=== PATIENT | female | born 1965 | race Caucasian/White ===

== ENCOUNTER 2019-06-12 11:44 | Emergency (ER) | payer BC, SELFPAY ==
[2019-06-12 11:56] VITALS: BP 174/107; PULSE 97; RESP 18; TEMP 36.7; O2SAT 98; BMI 25.7
--- NOTE | 2019-06-12 12:02 | XR_ITS ---
PROCEDURE: XR TIBIA FIBULA LT 2V CLINICAL INDICATION: FELL OUT OF CHAIR Posttraumatic pain COMPARISON: No exams were available for comparison FINDINGS: There is a nondisplaced fracture involving the proximal aspect of the fibula near the neck of the fibula medially. No other significant anomalies are evident. IMPRESSION: Nondisplaced fracture neck of fibula Dictated by: Adolfo Arredondo MD 06/12/2019 13:45 Electronically signed by Adolfo Arredondo MD in [place] 06/12/2019 13:45
--- NOTE | 2019-06-12 12:02 | XR_ITS ---
PROCEDURE: XR KNEE LT 3V CLINICAL INDICATION: FELL OUT OF CHAIR Posttraumatic pain COMPARISON: No exams were available for comparison FINDINGS: There is a nondisplaced fracture involving the neck of the fibula medially. Otherwise negative IMPRESSION: Nondisplaced fracture involves the neck of the fibula medially Dictated by: Adolfo Arerdondo MD 06/12/2019 13:46 Electronically signed by Adolfo Arredondo MD in [place] 06/12/2019 13:46
--- NOTE | 2019-06-12 12:11 | PC.NURSE ---
PT TO RAD
--- NOTE | 2019-06-12 13:11 | HMH.EDGENADL ---
ED Disposition Clinical Impression: Fracture, fibula, proximal Qualifiers: Encounter type: initial encounter Fracture type: closed Fracture morphology: unspecified fracture morphology Laterality: left Qualified Code(s): S82.832A - Other fracture of upper and lower end of left fibula, initial encounter for closed fracture Disposition: Home, Self-Care Condition on Discharge: Good Instructions: Fibula Shaft Fracture, How to Apply an Elastic Wrap on Knee, How to Use Crutches Additional Instructions: Web roll and Thomas wrap and crutches as needed for pain and swelling. Ice and elevation as needed for swelling and pain. Tylenol or ibuprofen for pain. Follow-up with orthopedics, call for appointment. Referrals: Chi Cervantes MD [Staff Physician] - - Critical Care Critical Care Time: No Attestation: On 06/12/19, the high probability of a clinically significant, sudden or life threatening deterioration of the following system(s) required my full and direct attention, intervention and personal management. The time I documented below is in addition to time spent performing reported procedures but includes the following listed in this critical care notation. Medical Decision Making - Petros Inquiry Pt receiving controlled substance: No Vital Signs: 06/12/19 11:56 Temperature 98.1 F Temperature Source Oral Pulse Rate [Left Radial] 97 H Respiratory Rate 18 Blood Pressure [Left Arm] 174/107 H Blood Pressure Mean [Left Arm] 129 Blood Pressure Source [Left Arm] Automatic Cuff Blood Pressure Position [Left Arm] Sitting 02 Sat by Pulse Oximetry 98 Oxygen Delivery Method Room Air Orders (Tests/Meds): ORDERS Category Date Time Status XR knee LT 3V Stat Exams 06/12/19 12:02 Taken XR tibia fibula LT 2V Stat Exams 06/12/19 12:02 Taken General Adult HPI - General Chief complaint: Extremity Injury, Lower Stated complaint: AO [id number] left leg swollen,home ao Time Seen by Provider: 06/12/19 13:11 Mode of Arrival: Ambulatory Limitations: No Limitations Description of Symptoms (Recalled from ER Triage Doc. by RN): PT C/O LT KNEE AND LLE PAIN. PT ADVISES THAT SHE WAS STANDING IN HER KITCHEN CHAIR, HANGING KENDAL LIGHTS ABOVE HER KITCHEN CABINETS, AND FELL OUT OF THE CHAIR. PT STATES THAT SHE FELL, THE CHAIR COME BACK AND HIT HER IN HER LT LEG BY HER OUTTER KNEE. PT NOW PRESENTS WITH SWELLING TO THE KNEE AND LLE. - History of Present Illness HPI narrative: Patient says that on Tuesday, 2 days ago she was standing on a kitchen chair and fell. She says that they chair fell over and hit her in the lateral aspect of her proximal lower leg and she now has pain and swelling in that area. She is able to bear weight. Denies numbness or weakness. - Related Data Previous Rx's Medication Instructions Recorded Ibuprofen [Ibuprofen 600mg Tab] 600 mg PO Q6HP PRN #30 tab 10/03/18 Amoxicillin/Potassium Clav 1 tab PO Q12H 10 Days #20 tab 05/02/19 [Augmentin 875-125 Tablet] lisinopriL [Lisinopril 10mg Tab] 10 mg PO DAILY 30 Days #30 tab 05/02/19 predniSONE [Deltasone 10mg tablet] 10 mg PO BID 4 Days #8 tab 05/02/19 Allergies Allergy/AdvReac Type Severity Reaction Status Date / Time gabapentin [GABAPENTIN] Allergy Unknown NA-NAUSEA/V Verified 10/03/18 10:05 OMITING naproxen [NAPROXEN] Allergy Unknown NA-NAUSEA/V Verified 10/03/18 10:05 OMITING [facility] History - Hepatitis A Screen Drug use history?: No High risk sexual behaviors?: No History of sexually transmitted infection?: No Currently employed?: No Childcare worker?: No Do you have indoor plumbing?: Yes Do you have electricity?: Yes Attestation statement:: This patient has been screened for Hepatitis A risk factors. I have reviewed the patient's past medical history: Yes Medical History: Denies:: Cancer, Diabetes Mellitus Type 1, Diabetes Mellitus Type 2, Internal Pacemaker, MRSA Laterality Cases: Left: Arthroscopy Shoulder Other S
--- NOTE | 2019-06-12 13:28 | PC.NURSE ---
web and meghana wrap applied to rlt leg. crutches and instructions given,.
[2019-06-12 13:30] VITALS: BP 112/74; PULSE 68; RESP 16; TEMP 36.6; O2SAT 98
== END 2019-06-12 13:31 | disposition home or self-care (01) ==
PROVIDERS: Emergency Provider Emergency Medicine; PCP Family Medicine
DX: S82.832A Other fracture of upper and lower end of left fibula, initial encounter for closed fracture (principal); W07.XXXA Fall from chair, initial encounter; Y92.010 Kitchen of single-family (private) house as the place of occurrence of the external cause; I10 Essential (primary) hypertension; F17.210 Nicotine dependence, cigarettes, uncomplicated; Z88.8 Allergy status to other drugs, medicaments and biological substances
CPT/HCPCS: 73562; 73590; 99283

== ENCOUNTER → 2019-10-16 09:32 | Outpatient (CLI) | payer BC, SELFPAY ==
--- NOTE | 2019-10-16 | XR_ITS ---
PROCEDURE: XR FOOT LT MIN 3V CLINICAL INDICATION: METATARSALGIA COMPARISON: CR XR FOOT RT MIN 3V from 10/16/2019 FINDINGS: No fracture or dislocation. No lytic or blastic change. There is normal mineralization. There is moderate hallux valgus. There is slight soft tissue prominence over the 1st metatarsal head. The plantar arch is normal. There is a small spur of the calcaneus at the insertion of the plantar tendon. IMPRESSION: Mild to moderate hallux valgus with small calcaneal spur Dictated by: Dr. Nick Lara MD 10/16/2019 10:08 Dr. Nick Lara MD in [place] 10/16/2019 10:08
--- NOTE | 2019-10-16 | XR_ITS ---
PROCEDURE: XR FOOT RT MIN 3V CLINICAL INDICATION: METATARSALGIA COMPARISON: No exams were available for comparison FINDINGS: No fracture or dislocation. No lytic or blastic change. There is normal mineralization. There is moderate hallux valgus somewhat more prominent than on the left foot. Mild soft tissue prominence over the 1st metatarsal head is again noted. The remaining metatarsals and phalanges all appear intact. Plantar arch is normal. There is a small tiny spur of the calcaneus at the insertion of the plantar tendon. IMPRESSION: Moderate hallux valgus with probable small bunion Dictated by: Dr. Nick Lara MD 10/16/2019 10:10 Dr. Nick Lara MD in [place] 10/16/2019 10:10
--- NOTE | 2019-10-16 09:43 | XR_ITS ---
PROCEDURE: XR CHEST 2V CLINICAL HISTORY: DYSPENA ON EXERTION COMPARISON: CR CXR CHEST(2 VIEWS-NOT PORTABLE) from 08/04/[address] CHEST W/O CONTRAST from 08/04/2013 FINDINGS: The cardiomediastinal silhouette and pulmonary vascularity are within normal limits. There is mild pectus excavatum. The lungs are clear without infiltrates, suspicious nodules, or pleural effusions. There are bilateral nipple rings noted. No acute bony abnormalities. IMPRESSION: No acute findings. Dictated by: Dr. Nick Lara MD 10/16/2019 10:07 Dr. Nick Lara MD in [place] 10/16/2019 10:07
--- NOTE | 2019-10-16 10:09 | ECG_ITS ---
APPROVED REPORT Exam: Resting ECG HR:63 bpm ECG Measurements Heart Rate 63 AXES NM 188 P 57 QRSd 88 QRS -5 QT 440 T 63 QTc 450 <Conclusion> Normal sinus rhythm Possible Left atrial enlargement Borderline ECG Electronically signed by : Tanner Sutherland, 10/16/2019 10:26:12
== END ==
LOC: RAD 09:35
PROVIDERS: PCP Internal Medicine; Visit Provider Internal Medicine
DX: R06.09 Other forms of dyspnea (principal); I10 Essential (primary) hypertension; F17.210 Nicotine dependence, cigarettes, uncomplicated; M79.671 Pain in right foot; M79.672 Pain in left foot
CPT/HCPCS: 71046; 73630; 93005

== ENCOUNTER → 2020-01-28 17:40 | Outpatient (CLI) | payer BC, SELFPAY ==
[2020-01-30 13:18] LABS: Covid-19 Nasal PCR Sendout Lex Not Detected
== END ==
PROVIDERS: PCP Internal Medicine; Visit Provider Internal Medicine
DX: Z03.818 Encounter for observation for suspected exposure to other biological agents ruled out (principal)
CPT/HCPCS: U0004

== ENCOUNTER → 2020-02-06 08:06 | Outpatient (CLI) | payer BC, SELFPAY ==
--- NOTE | 2020-02-06 08:09 | MR_ITS ---
PROCEDURE: MR CERVICAL SPINE WO CON CLINICAL INDICATION: CERVICAL SPINAL STENOSIS episodes of bilateral arm numbness and pain from elbows to hands and unable to move arms. symptoms x3-4wks. no injury. headache. COMPARISON: CT [facility]WO CT CERVICAL SPINE W/O CONT from 08/04/2013 TECHNIQUE: Standard multiplanar multiecho sequences are performed without contrast. 3-D MIP and myelographic images are also rendered and reviewed FINDINGS: There is normal alignment. Motion artifact obscures fine detail. The craniocervical junction has an unremarkable appearance. C2-C3: Unremarkable. C3-C4: Unremarkable. C4-C5: Minimal bulging disc. C5-C6: Minimal bulging disc C6-C7: Degenerative disc disease with minimal bulging disc. C7-T1: Minimal bulging disc IMPRESSION: Motion artifact which obscures fine detail. There is mild degenerative change with mild bulging disc and mild degenerative disc disease at C6-C7. No extruded herniated disc or canal stenosis. Dictated by: Adolfo Arredondo MD 02/07/2020 14:46 Adolfo Arredondo MD in [place] 02/07/2020 14:46
== END ==
PROVIDERS: PCP Internal Medicine; Visit Provider Internal Medicine
DX: M48.02 Spinal stenosis, cervical region (principal); R53.1 Weakness; M79.605 Pain in left leg; M79.604 Pain in right leg
CPT/HCPCS: 72141; 76376

== ENCOUNTER → 2020-03-03 09:30 | Outpatient (CLI) | payer BC, SELFPAY ==
[2020-03-03 10:44] LABS: Alanine Aminotransferase 16 U/L (12-78); Albumin Level 4.8 g/dl (3.5-5.0); Albumin/Globulin Ratio 1.5 (1.1-1.8); Alkaline Phosphatase 70 U/L (38-126); Anion Gap 13.5 mEq/L (5-15); Aspartate Amino Transferase 38 U/L (14-36); Bilirubin,Total 0.4 mg/dl (0.2-1.3); Blood Urea Nitrogen 25 mg/dl (7-17); Carbon Dioxide 32 mmol/L (22.0-30.0); Chloride 99 mmol/L (98-107); Estimated Glomerular Filt Rate 52 ml/min (>60); GFR (African American) 63 ML/MIN (>60); Globulin 3.3 g/dL (1.3-3.2); Glucose 102 mg/dl (74-100); Potassium 3.5 mmoL/L (3.5-5.1); Sodium 141 mmol/L (136-145); Total Protein,Serum 8.1 g/dl (6.3-8.2)
[2020-03-03 11:51] LABS: Vitamin B12 380 pg/mL (239-931)
[2020-03-03 11:55] LABS: Folate 3.36 ng/mL
[2020-03-07 12:45] LABS: Vitamin B1 119.3 nmol/L (66.5-200.0)
== END ==
PROVIDERS: Visit Provider Specialist
DX: R20.0 Anesthesia of skin (principal); R20.2 Paresthesia of skin
CPT/HCPCS: 36415; 80053; 82607; 82746; 84425

== ENCOUNTER 2020-06-29 16:01 | Emergency (ER) | payer BC, SELFPAY ==
[2020-06-29 16:02] VITALS: BP 206/107; PULSE 83; RESP 16; TEMP 37; O2SAT 98; BMI 24.0
--- NOTE | 2020-06-29 16:39 | HMH.EDGENADL ---
ED Disposition Clinical Impression: Peripheral edema, Essential hypertension Disposition: Home, Self-Care Condition on Discharge: Good Instructions: DI for High Blood Pressure, DI for Peripheral Edema -- Bilateral Additional Instructions: For follow-up of blood pressure and swelling. Rest and elevate your legs tonight. Restart your blood pressure medication as soon as possible. Prescriptions: Lisinopril/Hydrochlorothiazide [Lisinopril-Hctz 20-25 mg Tab] 1 tab PO DAILY #30 tab Transmission Status: Pending to [facility] #[id number] Referrals: Tanner Sutherland [Primary Care Provider] - Forms: Work/School Release - Critical Care Critical Care Time: No Attestation: On 06/29/20, the high probability of a clinically significant, sudden or life threatening deterioration of the following system(s) required my full and direct attention, intervention and personal management. The time I documented below is in addition to time spent performing reported procedures but includes the following listed in this critical care notation. Medical Decision Making - Petros Inquiry Pt receiving controlled substance: No Vital Signs: 06/29/20 16:02 Temperature 98.6 F Temperature Source Oral Pulse Rate [Right Brachial] 83 Respiratory Rate 16 Blood Pressure [Right Arm] 206/107 H Blood Pressure Mean [Right Arm] 140 Blood Pressure Source [Right Arm] Automatic Cuff Blood Pressure Position [Right Arm] Sitting 02 Sat by Pulse Oximetry 98 Oxygen Delivery Method Room Air - Lab Data Lab Results 06/29/20 16:52: WBC 8.8, RBC 4.05 L, Hgb 12.4, Hct 37.4, MCV 92.4, MCH 30.6, MCHC 33.1, RDW 13.4, Plt Count 319, MPV 7.7, Neut % (Auto) 53.1, Lymph % (Auto) 38.8, [place] % (Auto) 4.5, Eos % (Auto) 3.0, Baso % (Auto) 0.6, Neut # (Auto) 4.7, Lymph # (Auto) 3.4, [place] # (Auto) 0.4, Eos # (Auto) 0.3, Baso # (Auto) 0.1 06/29/20 16:52: Sodium 140, Potassium 3.3 L, Chloride 107, Carbon Dioxide 25, Anion Gap 11.3, BUN 23 H, Creatinine 0.90, Estimated Creat Clear 71, Estimated GFR 65, Est GFR ( Amer) 79, Glucose 118 H, Calcium 9.1, Total Bilirubin 0.2, AST 31, ALT 17, Alkaline Phosphatase 66, Total Protein 6.9, Albumin 3.9, Globulin 3.0, Albumin/Globulin Ratio 1.3 Result diagrams: 06/29/20 16:52 06/29/20 16:52 Orders (Tests/Meds): ED MEDICATIONS Discontinued Medications Generic Name Dose Route Start Last Admin Trade Name Brenda PRN Reason Stop Dose Admin Furosemide 20 mg 06/29/20 17:24 Furosemide 20 Mg/2 Ml Vial IV 06/29/20 17:25 ONCE ONE ORDERS Category Date Time Status CMP [Comprehensive Metabolic Panel] Stat Lab 06/29/20 16:52 Results TSH [Thyroid Stimulating Hormone] Stat Lab 06/29/20 16:52 Results General Adult HPI - General Chief complaint: Skin/Abscess/Foreign Body Stated complaint: feet and legs swollen Time Seen by Provider: 06/29/20 16:39 Mode of Arrival: Ambulatory Limitations: No Limitations Description of Symptoms (Recalled from ER Triage Doc. by RN): pt reports swelling to stephenie lower legs and feet that she hasn't been able to get improved x4-5 days. Pt reports - History of Present Illness HPI narrative: Complains of bilateral foot swelling for about 4 to 5 days, the swelling is caused her feet to hurt. Also out of her blood pressure medication, lisinopril/hydrochlorothiazide. There has been some problem with her physician calling it in to her pharmacy. Denies chest pain, shortness of breath. Review of her medication record also indicates that she had been on clonidine, but she says she was not on that for her blood pressure. Her Suboxone physician had her on it and has since stopped it sometime ago. She also has been prescribed spironolactone, but says she has never been able to get it filled at her pharmacy. - Related Data Home Medications Medication Instructions Recorded Confirmed aspirin 81 mg tablet,delayed 81 mg PO DAILY 03/03/20 03/03/20 release atorvastatin 20 mg tablet
[2020-06-29 17:05] LABS: Basophils # 0.1 K/mm3 (0-0.2); Basophils % 0.6 % (0.1-2.0); Eosinophils # 0.3 K/mm3 (0.0-0.4); Hematocrit 37.4 % (37.0-47.0); Hemoglobin 12.4 g/dL (12.2-16.2); Lymphocytes # 3.4 K/mm3 (0.7-4.5); Lymphocytes % 38.8 % (10-50); Mean Corpuscular HGB Conc 33.1 g/dL (31.8-35.4); Mean Corpuscular Hemoglobin 30.6 pg (27.0-31.2); Mean Corpuscular Volume 92.4 fl (81-99); Mean Platelet Volume 7.7 fl (7.4-10.4); Monocytes # 0.4 K/mm3 (0.1-1.0); Monocytes % 4.5 % (1.7-9.3); Neutrophils # 4.7 K/mm3 (1.8-7.8); Neutrophils % 53.1 % (37.0-80.0); Platelet Count 319 K/mm3 (142-424); Red Blood Count 4.05 M/mm3 (4.20-5.40); Red Cell Distribution Width 13.4 % (11.5-17.5); White Blood Count 8.8 K/mm3 (4.8-10.8)
[2020-06-29 17:10] LABS: Chloride 107 mmol/L (98-107); Potassium 3.3 mmoL/L (3.5-5.1); Sodium 140 mmol/L (136-145)
[2020-06-29 17:13] LABS: Alanine Aminotransferase 17 U/L (12-78); Albumin Level 3.9 g/dl (3.5-5.0); Albumin/Globulin Ratio 1.3 (1.1-1.8); Alkaline Phosphatase 66 U/L (38-126); Anion Gap 11.3 mEq/L (5-15); Aspartate Amino Transferase 31 U/L (14-36); Bilirubin,Total 0.2 mg/dl (0.2-1.3); Blood Urea Nitrogen 23 mg/dl (7-17); Carbon Dioxide 25 mmol/L (22.0-30.0); Creatinine Clearance Estimated 71 mL/min (50-200); Estimated Glomerular Filt Rate 65 ml/min (>60); GFR (African American) 79 ML/MIN (>60); Total Protein,Serum 6.9 g/dl (6.3-8.2)
[2020-06-29 17:14] LABS: Calcium 9.1 mg/dl (8.4-10.2); Glucose 118 mg/dl (74-100)
[2020-06-29 17:36] VITALS: BP 156/107; PULSE 70; RESP 18; TEMP 37; O2SAT 98
== END 2020-06-29 17:36 | disposition home or self-care (01) ==
PROVIDERS: Emergency Provider Emergency Medicine; PCP Internal Medicine
DX: R60.9 Edema, unspecified (principal); I10 Essential (primary) hypertension; E78.5 Hyperlipidemia, unspecified; G43.709 Chronic migraine without aura, not intractable, without status migrainosus; F17.210 Nicotine dependence, cigarettes, uncomplicated; Z79.899 Other long term (current) drug therapy
CPT/HCPCS: 80053; 84443; 85025; 96374; 99282

== ENCOUNTER → 2020-07-15 11:05 | Outpatient (CLI) | payer BC, SELFPAY ==
--- NOTE | 2020-07-15 11:10 | CA_ITS ---
APPROVED REPORT Bilateral Lower Extremity Venous Study for DVT. Scout: JANIYA Indications Lower Extremity Pain: Bilateral Lower Extremity Edema: Bilateral Current Smoker Risk Factors Hypertension, Hyperlipidemia. Pain and edema in lower extremities and feet x 3-4 weeks with no known trauma. Medications Aspirin 81 mg ASA daily. Patient started oral HRT 5-6 months ago. Vein Imaging CFV (R): compressive, spontaneous, phasic, augmentation FEM (R): compressive, spontaneous, phasic, augmentation POP (R): compressive, spontaneous, phasic, augmentation PTV (R): Compressible GSV (R): compressive, spontaneous, phasic, augmentation Peroneals (R):Compressible GAS (R): Compressible CFV (L): compressive, spontaneous, phasic, augmentation FEM (L): compressive, spontaneous, phasic, augmentation POP (L): compressive, spontaneous, phasic, augmentation PTV (L): Compressible GSV (L): compressive, spontaneous, phasic, augmentation Peroneals (L):Compressible GAS (L): Compressible Findings No evidence of DVT or superficial thrombophlebitis in the veins scanned of the right lower extremity. No evidence of DVT or superficial thrombophlebitis in the veins scanned of the left lower extremity. Conclusion No evidence of DVT or superficial thrombophlebitis in the veins scanned of the right lower extremity. No evidence of DVT or superficial thrombophlebitis in the veins scanned of the left lower extremity. Critical Notification Critical Value: No Physician Notified Date: 07/15/2020 Time: 11:48 Physician Name: Dr. Sutherland Report Read Back Electronically signed by : Adolfo Arredondo MD 07/15/2020 16:22:49
== END ==
PROVIDERS: PCP Internal Medicine; Visit Provider Internal Medicine
DX: M79.604 Pain in right leg (principal); M79.605 Pain in left leg; R60.0 Localized edema
CPT/HCPCS: 93970

== ENCOUNTER → 2020-11-13 09:21 | Outpatient (CLI) | payer OTHER, SELFPAY | PROVIDERS: PCP Internal Medicine; Visit Provider Nurse Practitioner | DX: Z20.822 Contact with and (suspected) exposure to COVID-19 (principal) | CPT/HCPCS: C9803; U0003; U0005 ==

== ENCOUNTER → 2020-12-12 08:48 | Outpatient (CLI) | payer OTHER, SELFPAY | PROVIDERS: PCP Internal Medicine; Visit Provider Nurse Practitioner | DX: Z20.822 Contact with and (suspected) exposure to COVID-19 (principal) | CPT/HCPCS: C9803; U0003; U0005 ==

== ENCOUNTER → 2021-03-16 17:59 | Outpatient (CLI) | payer OTHER, SELFPAY ==
[2021-03-16 18:35] LABS: Basophils # 0.1 K/mm3 (0-0.2); Basophils % 0.9 % (0.1-2.0); Eosinophils # 0.1 K/mm3 (0.0-0.4); Eosinophils % 1.6 % (0.1-12.0); Hematocrit 40.8 % (37.0-47.0); Hemoglobin 13.2 g/dL (12.2-16.2); Lymphocytes # 2.9 K/mm3 (0.7-4.5); Lymphocytes % 40.2 % (10-50); Mean Corpuscular HGB Conc 32.5 g/dL (31.8-35.4); Mean Corpuscular Volume 95.6 fl (81-99); Mean Platelet Volume 8.5 fl (7.4-10.4); Monocytes # 0.3 K/mm3 (0.1-1.0); Monocytes % 4.8 % (1.7-9.3); Neutrophils # 3.7 K/mm3 (1.8-7.8); Neutrophils % 52.5 % (37.0-80.0); Platelet Count 306 K/mm3 (142-424); Red Blood Count 4.26 M/mm3 (4.20-5.40); Red Cell Distribution Width 13.6 % (11.5-17.5); White Blood Count 7.1 K/mm3 (4.8-10.8)
[2021-03-16 19:45] LABS: Alanine Aminotransferase 20 U/L (12-78); Albumin Level 4.4 g/dl (3.5-5.0); Albumin/Globulin Ratio 1.6 (1.1-1.8); Alkaline Phosphatase 64 U/L (38-126); Anion Gap 12.6 mEq/L (5-15); Aspartate Amino Transferase 32 U/L (14-36); Bilirubin,Total 0.4 mg/dl (0.2-1.3); Blood Urea Nitrogen 15 mg/dl (7-17); Calcium 9.3 mg/dl (8.4-10.2); Carbon Dioxide 26 mmol/L (22.0-30.0); Chloride 103 mmol/L (98-107); Estimated Glomerular Filt Rate 65 ml/min (>60); GFR (African American) 79 ML/MIN (>60); Globulin 2.7 g/dL (1.3-3.2); Glucose 89 mg/dl (74-100); Magnesium 1.8 mg/dl (1.6-2.3); Potassium 3.6 mmoL/L (3.5-5.1); Sodium 138 mmol/L (136-145); Total Protein,Serum 7.1 g/dl (6.3-8.2)
== END ==
LOC: LAB.DROPOF 18:00
PROVIDERS: Visit Provider Internal Medicine
DX: E03.9 Hypothyroidism, unspecified (principal); E78.5 Hyperlipidemia, unspecified; I10 Essential (primary) hypertension; R25.2 Cramp and spasm; M62.838 Other muscle spasm
CPT/HCPCS: 80053; 83735; 84443; 85025

== ENCOUNTER 2021-03-18 07:52 | Emergency (ER) | payer MEDICAID, SELFPAY ==
[2021-03-18 07:59] VITALS: BP 194/117; PULSE 79; RESP 17; TEMP 36.9; O2SAT 98; BMI 24.7
--- NOTE | 2021-03-18 08:07 | XR_ITS ---
PROCEDURE INFORMATION: Exam: XR Chest Exam date and time: 03/18/2021 8:07 AM Age: 55 years old Clinical indication: Cough; Patient HX: Smoker. ; Additional info: Cough, covid symptoms TECHNIQUE: Imaging protocol: XR of the chest. Views: 1 view. COMPARISON: CR XR CHEST 2V 10/16/2019 9:46 AM FINDINGS: Lungs: No focal airspace disease. Pleural spaces: Unremarkable. No pleural effusion. No pneumothorax. Heart/Mediastinum: Cardiomediastinal silhouette is within normal limits. Bones/joints: Unremarkable. IMPRESSION: No acute cardiopulmonary abnormality.
[2021-03-18 08:11] VITALS: BP 147/96; PULSE 81; RESP 18; O2SAT 96
[2021-03-18 08:41] VITALS: BP 142/88; PULSE 72; O2SAT 98
--- NOTE | 2021-03-18 08:49 | HMH.EDGENADL ---
ED Disposition Clinical Impression: Suspected COVID-19 virus infection Disposition: Home, Self-Care Condition on Discharge: Good Instructions: DI for COVID-19 (Suspected or Confirmed ) Additional Instructions: Quarantine yourself until you obtain your COVID-19 test result. You will be called with the result. Rest, drink plenty of fluids. Tylenol or Ibuprofen for fever and/or aches and pains. Zofran as needed for nausea. Tessalon as needed for cough. If your Covid test is positive: Monitor your symptoms. IF YOU HAVE AN EMERGENCY WARNING SIGN (INCLUDING TROUBLE BREATHING), SEEK EMERGENCY MEDICAL CARE IMMEDIATELY. COVID-19 Isolation: People with COVID-19 should isolate for 5 days. Then if they are asymptomatic (no symptoms) or their symptoms are resolving (without fever for 24 hours), follow that by 5 days of wearing a mask when around others to minimize the risk of infecting people you encounter. If you test positive for COVID-19 and never develop symptoms, day 0 is the day of your positive viral test (based on the date you were tested) and day 1 is the first full day after your positive test. If you develop symptoms after testing positive, your 5-day isolation period must start over. Day 0 is your first day of symptoms. Day 1 is the first full day after your symptoms developed. What to do: Stay in a separate room from other household members, if possible. Use a separate bathroom, if possible. Avoid contact with other members of the household and pets. Don?t share personal household items, like cups, towels, and utensils. Wear a mask when around other people if able. Prescriptions: Benzonatate [Benzonatate 100mg cap] 100 mg PO TIDP PRN #10 cap PRN Reason: Cough Transmission Status: Received by [facility] #[id number] Ondansetron [Zofran 4mg ODT] 4 mg PO TIDP PRN #10 tab PRN Reason: Nausea And Vomiting Transmission Status: Received by [facility] #[id number] Referrals: Tanner Sutherland [Primary Care Provider] - - Critical Care Critical Care Time: No Attestation: On 03/18/21, the high probability of a clinically significant, sudden or life threatening deterioration of the following system(s) required my full and direct attention, intervention and personal management. The time I documented below is in addition to time spent performing reported procedures but includes the following listed in this critical care notation. Medical Decision Making - Petros Inquiry Pt receiving controlled substance: No Vital Signs: 03/18/21 07:59 03/18/21 08:11 03/18/21 08:41 Temperature 98.4 F Temperature Source Oral Pulse Rate 81 72 Pulse Rate [Left Radial] 79 Respiratory Rate 17 18 Blood Pressure 147/96 H 142/88 H Blood Pressure [Right Arm] 194/117 H Blood Pressure Mean [Right Arm] 142 Blood Pressure Source Automatic Cuff Blood Pressure Source [Right Arm] Automatic Cuff Blood Pressure Position Sitting Blood Pressure Position [Right Arm] Sitting 02 Sat by Pulse Oximetry 98 96 98 Oxygen Delivery Method Room Air Room Air Room Air 03/18/21 09:18 Temperature 98.4 F Temperature Source Pulse Rate 72 Pulse Rate [Left Radial] Respiratory Rate 18 Blood Pressure 142/88 H Blood Pressure [Right Arm] Blood Pressure Mean [Right Arm] Blood Pressure Source Blood Pressure Source [Right Arm] Blood Pressure Position Blood Pressure Position [Right Arm] 02 Sat by Pulse Oximetry Oxygen Delivery Method Room Air - Lab Data Lab Results 03/18/21 08:06: Influenza Type A Ag Negative, Influenza Type B Ag Negative Orders (Tests/Meds): ED MEDICATIONS Discontinued Medications Generic Name Dose Route Start Last Admin Trade Name Ticoq PRN Reason Stop Dose Admin Acetaminophen 1,000 mg 03/18/21 08:58 03/18/21 09:02 Acetaminophen 500mg Tab PO 03/18/21 08:59 1,000 mg ONCE ONE Administration Ondansetron HCl 4 mg 03/18/21 08:58 03/18/21 09:02 Ondanset
[2021-03-18 09:18] VITALS: BP 142/88; PULSE 72; RESP 18; TEMP 36.9; O2SAT 98
== END 2021-03-18 09:18 | disposition home or self-care (01) ==
PROVIDERS: Emergency Provider Emergency Medicine; PCP Internal Medicine
DX: J06.9 Acute upper respiratory infection, unspecified (principal); Z20.822 Contact with and (suspected) exposure to COVID-19
CPT/HCPCS: 71045; 87275; 87276; 99282; C9803; U0003; U0005

== ENCOUNTER → 2021-04-27 16:57 | Outpatient (CLI) | payer MEDICAID, SELFPAY ==
[2021-04-27 19:38] LABS: Thyroid Stimulating Hormone 0.06 uIU/mL (0.465-4.68)
== END ==
PROVIDERS: Visit Provider Internal Medicine
DX: E03.9 Hypothyroidism, unspecified (principal); M10.00 Idiopathic gout, unspecified site; R25.2 Cramp and spasm
CPT/HCPCS: 84443

== ENCOUNTER → 2021-04-28 08:37 | Outpatient (CLI) | payer OTHER, SELFPAY ==
--- NOTE | 2021-04-28 08:59 | XR_ITS ---
FINAL REPORT CLINICAL HISTORY: CASIMIRO HIP PAIN,SCIATICA,LOW BACK PAIN FINDINGS: LUMBAR SPINE Five views of the lumbar spine were obtained. There is no acute fracture or subluxation. Mild degenerative change with osteophytes are present. There is dextroscoliosis centered on T12. Note is made of mild vascular calcification. IMPRESSION: Mild degenerative changes. Reviewed, Interpreted and Dictated by Kiel Hogan III, MD Transcribed by Yulia Casey Authenticated by Kiel Hogan III, MD on 04/28/2021 11:09:35 AM [facility]
--- NOTE | 2021-04-28 08:59 | XR_ITS ---
FINAL REPORT CLINICAL HISTORY: CASIMIRO HIP PAIN,SCIATICA,LOW BACK PAIN FINDINGS: HIP BILATERAL Three views of each hip demonstrate no acute fracture or dislocation. The joint spaces appear normal. The visualized bony structures are well aligned. No soft tissue abnormality is seen. IMPRESSION: No acute process. Reviewed, Interpreted and Dictated by Kiel Hogan III, MD Transcribed by Yulia Casey Authenticated by Kiel Hogan III, MD on 04/28/2021 11:09:33 AM [facility]
== END ==
PROVIDERS: PCP Internal Medicine; Visit Provider Internal Medicine
DX: M54.50 Low back pain, unspecified (principal); M54.31 Sciatica, right side; M25.552 Pain in left hip; M25.551 Pain in right hip
CPT/HCPCS: 72110; 73521

== ENCOUNTER 2021-07-11 12:37 | Emergency (ER) | payer OTHER, SELFPAY ==
--- NOTE | 2021-07-11 12:43 | HMH.EDABDPAI ---
ED Disposition Clinical Impression: Epigastric abdominal pain, Bacteriuria Disposition: Home, Self-Care Condition on Discharge: Good Instructions: DI for Acute Abdominal Pain Additional Instructions: follow up PCP next week, return here for worse Prescriptions: Sulfamethoxazole/Trimethoprim [Bactrim DS tablet] 1 each PO BID #10 tab Transmission Status: Pending to [facility] # Pantoprazole Sodium [Protonix 40mg tablet] 40 mg PO DAILY #30 tab Transmission Status: Pending to [facility] # Referrals: Tanner Sutherland MD [Primary Care Provider] - - Critical Care Critical Care Time: No Attestation: On , the high probability of a clinically significant, sudden or life threatening deterioration of the following system(s) required my full and direct attention, intervention and personal management. The time I documented below is in addition to time spent performing reported procedures but includes the following listed in this critical care notation. Medical Decision Making - Medical Records Medical records reviewed: Yes: I reviewed the patient's medical records. - Petros Inquiry Pt receiving controlled substance: No Vital Signs: 07/11/21 12:54 Temperature 98.2 F Temperature Source Oral Pulse Rate [Left Radial] 79 Respiratory Rate 17 Blood Pressure [Right Arm] 132/84 Blood Pressure Mean [Right Arm] 100 02 Sat by Pulse Oximetry 98 Oxygen Delivery Method Room Air - Lab Data Lab Results 07/11/21 13:15: WBC 7.5, RBC 4.43, Hgb 13.7, Hct 40.9, MCV 92.4, MCH 31.1, MCHC 33.6, RDW 14.1, Plt Count 315, MPV 8.2, Neut % (Auto) 55.2, Lymph % (Auto) 36.7, [place] % (Auto) 3.7, Eos % (Auto) 1.2, Baso % (Auto) 3.2 H, Neut # (Auto) 4.1, Lymph # (Auto) 2.7, [place] # (Auto) 0.3, Eos # (Auto) 0.1, Baso # (Auto) 0.2 07/11/21 13:15: Sodium 140, Potassium 2.8 L*, Chloride 106, Carbon Dioxide 27, Anion Gap 9.8, BUN 19 H, Creatinine 1.00, Estimated Creat Clear 63, Estimated GFR 57 L, Est GFR ( Amer) 69, Glucose 104 H, Calcium 9.4, Total Bilirubin 0.4, AST 40 H, ALT 20, Alkaline Phosphatase 76, Troponin I < 0.01, Total Protein 7.4, Albumin 4.2, Globulin 3.2, Albumin/Globulin Ratio 1.3, Lipase 76 07/11/21 14:11: Troponin I < 0.01 07/11/21 14:42: Urine Color Yellow, Urine Appearance Clear, Urine pH 5.0, Ur Specific [place] >= 1.030, Urine Protein Negative, Urine Glucose (UA) Negative, Urine Ketones Negative, Urine Blood 2+, Urine Nitrate Negative, Urine Bilirubin Negative, Urine Urobilinogen 0.2, Ur Leukocyte Esterase Negative, Urine RBC 10-20, Urine WBC 5-10, Ur Squamous Epith Cells 3-5, Urine Bacteria 1+ Result diagrams: 07/11/21 13:15 07/11/21 13:15 Orders (Tests/Meds): ED MEDICATIONS Discontinued Medications Generic Name Dose Route Start Last Admin Trade Name Freq PRN Reason Stop Dose Admin Belladonna Alkaloids 60 ml 07/11/21 12:46 07/11/21 13:19 Gi Cocktail 60ml Udc PO 07/11/21 12:47 60 ml ONCE ONE Administration Dicyclomine HCl 20 mg 07/11/21 12:46 07/11/21 13:20 Dicyclomine 10mg Capsule PO 07/11/21 12:47 20 mg ONCE ONE Administration Potassium Chloride 60 meq 07/11/21 13:48 07/11/21 14:12 Potassium Chloride 20meq Tab PO 07/11/21 13:49 60 meq ONCE ONE Administration ORDERS Category Date Time Status Troponin I Q3H Lab 07/11/21 19:00 Ordered ECG Request by /Nse Stat Y 07/11/21 12:46 Ordered - ECG Data Tracing #1 I reviewed this ECG and interpreted as documented below: ekg by me nsr, 1st deg block, lae, no st elev - Reevaluation(s) Time: 14:39 (reval, appears well, pain mild intermittent, discussed poss ct, declined says it feels like her ulcer, advised to return for worse and f/u pcp) Abdominal Pain HPI - General Stated Complaint: abd pains into chest Time Seen by Provider: 05/21/22 12:43 - History of Present Illness HPI narrative: upper abd pain rad to chest few hours, intermittent, moderate, no assoc symptoms, bett
--- NOTE | 2021-07-11 12:52 | ECG_ITS ---
APPROVED REPORT Exam: Resting ECG HR:71 bpm ECG Measurements Heart Rate 71 AXES CO 217 P -9 QRSd 113 QRS 42 QT 407 T -11 QTc 430 Conclusion SINUS RHYTHM WITH FIRST DEGREE AV BLOCK POSSIBLE LEFT ATRIAL ENLARGEMENT [-0.1mV P-WAVE IN V1/V2] MODERATE INTRAVENTRICULAR CONDUCTION DELAY [110+ ms QRS DURATION] ABNORMAL ECG UNCONFIRMED REPORT Electronically signed by : Hasmukh Hanna MD 07/13/2021 17:47:43
[2021-07-11 12:54] VITALS: BP 132/84; PULSE 79; RESP 17; TEMP 36.8; O2SAT 98; BMI 24.0
[2021-07-11 13:33] LABS: Basophils # 0.2 K/mm3 (0-0.2); Basophils % 3.2 % (0.1-2.0); Eosinophils # 0.1 K/mm3 (0.0-0.4); Eosinophils % 1.2 % (0.1-12.0); Hematocrit 40.9 % (37.0-47.0); Hemoglobin 13.7 g/dL (12.2-16.2); Lymphocytes # 2.7 K/mm3 (0.7-4.5); Lymphocytes % 36.7 % (10-50); Mean Corpuscular HGB Conc 33.6 g/dL (31.8-35.4); Mean Corpuscular Hemoglobin 31.1 pg (27.0-31.2); Mean Corpuscular Volume 92.4 fl (81-99); Mean Platelet Volume 8.2 fl (7.4-10.4); Monocytes # 0.3 K/mm3 (0.1-1.0); Monocytes % 3.7 % (1.7-9.3); Neutrophils # 4.1 K/mm3 (1.8-7.8); Neutrophils % 55.2 % (37.0-80.0); Platelet Count 315 K/mm3 (142-424); Red Blood Count 4.43 M/mm3 (4.20-5.40); Red Cell Distribution Width 14.1 % (11.5-17.5); White Blood Count 7.5 K/mm3 (4.8-10.8)
[2021-07-11 13:36] LABS: Chloride 106 mmol/L (98-107); Sodium 140 mmol/L (136-145)
[2021-07-11 13:38] LABS: Blood Urea Nitrogen 19 mg/dl (7-17); Creatinine Clearance Estimated 63 mL/min (50-200); Estimated Glomerular Filt Rate 57 ml/min (>60); GFR (African American) 69 ML/MIN (>60)
[2021-07-11 13:39] LABS: Alanine Aminotransferase 20 U/L (12-78); Albumin Level 4.2 g/dl (3.5-5.0); Albumin/Globulin Ratio 1.3 (1.1-1.8); Alkaline Phosphatase 76 U/L (38-126); Anion Gap 9.8 mEq/L (5-15); Aspartate Amino Transferase 40 U/L (14-36); Bilirubin,Total 0.4 mg/dl (0.2-1.3); Calcium 9.4 mg/dl (8.4-10.2); Carbon Dioxide 27 mmol/L (22.0-30.0); Globulin 3.2 g/dL (1.3-3.2); Glucose 104 mg/dl (74-100); Lipase 76 U/L (23-300); Total Protein,Serum 7.4 g/dl (6.3-8.2)
[2021-07-11 13:48] LABS: Potassium 2.8 mmoL/L (3.5-5.1)
[2021-07-11 13:57] LABS: Troponin I < 0.01 ng/ml (0.00-0.034)
[2021-07-11 14:46] LABS: Microscopic, Urine URINE MICROSCOPIC (MICROSCOPIC)
[2021-07-11 15:06] LABS: Appearance,Urine CLEAR (Clear); Bilirubin,Urine Negative (Negative); Blood, Urine 2+ (Negative); Color,Urine YELLOW (Yellow); Glucose,Urine (UA) Negative (Negative); Ketones,Urine Negative (Negative); Leukocyte Esterase,Urine Negative (Negative); Nitrate,Urine Negative (Negative); Protein,Urine Negative (Negative); Specific Gravity, Urine >= 1.030 (1.005-1.030); Urobilinogen,Urine 0.2 EU/dl (0.2)
[2021-07-11 15:17] LABS: Troponin I < 0.01 ng/ml (0.00-0.034)
[2021-07-11 15:29] LABS: Bacteria,Urine 1+ /lpf
[2021-07-11 15:55] VITALS: BP 130/80; PULSE 71; RESP 17; TEMP 36.8; O2SAT 99
== END 2021-07-11 15:55 | disposition home or self-care (01) ==
PROVIDERS: Emergency Provider Emergency Medicine; PCP Internal Medicine
DX: R10.13 Epigastric pain (principal); I10 Essential (primary) hypertension; I44.0 Atrioventricular block, first degree; E78.5 Hyperlipidemia, unspecified; M19.90 Unspecified osteoarthritis, unspecified site; L98.499 Non-pressure chronic ulcer of skin of other sites with unspecified severity; G43.909 Migraine, unspecified, not intractable, without status migrainosus; Z79.899 Other long term (current) drug therapy; Z88.6 Allergy status to analgesic agent; Z88.8 Allergy status to other drugs, medicaments and biological substances; Z82.49 Family history of ischemic heart disease and other diseases of the circulatory system; Z80.9 Family history of malignant neoplasm, unspecified; Z83.3 Family history of diabetes mellitus
CPT/HCPCS: 80053; 81001; 83690; 84484; 85025; 93005; 99285

== ENCOUNTER → 2021-08-10 12:30 | Outpatient (CLI) | payer OTHER, SELFPAY ==
[2021-08-10 14:13] LABS: Chloride 107 mmol/L (98-107); Sodium 138 mmol/L (136-145)
[2021-08-10 14:14] LABS: Potassium 3.7 mmoL/L (3.5-5.1)
[2021-08-10 14:17] LABS: Anion Gap 13.7 mEq/L (5-15); Blood Urea Nitrogen 19 mg/dl (7-17); Calcium 9.5 mg/dl (8.4-10.2); Carbon Dioxide 21 mmol/L (22.0-30.0); Estimated Glomerular Filt Rate 65 ml/min (>60); GFR (African American) 78 ML/MIN (>60); Glucose 88 mg/dl (74-100)
== END ==
LOC: LAB.DROPOF 12:31
PROVIDERS: PCP Internal Medicine; Visit Provider Internal Medicine
DX: I10 Essential (primary) hypertension (principal); E03.9 Hypothyroidism, unspecified; G60.9 Hereditary and idiopathic neuropathy, unspecified
CPT/HCPCS: 80048; 84443

== ENCOUNTER → 2021-09-02 09:45 | Outpatient (CLI) | payer OTHER, SELFPAY ==
--- NOTE | 2021-09-02 09:51 | XR_ITS ---
FINAL REPORT CLINICAL HISTORY: pain COMPARISON: October 16, 2019 FINDINGS: RIGHT FOOT Three views of the right foot demonstrate no acute fracture or dislocation. There is moderate hallux valgus deformity. There is a small plantar spur. The soft tissues are unremarkable. IMPRESSION: Moderate hallux valgus deformity. No acute bony abnormality. Reviewed, Interpreted and Dictated by Mauro Perry MD Transcribed by Risa Menezes Authenticated and [facility]
--- NOTE | 2021-09-02 09:51 | XR_ITS ---
FINAL REPORT CLINICAL HISTORY: pain FINDINGS: LEFT FOOT Three weight-bearing views of the left foot demonstrate no acute fracture or dislocation. There is moderate hallux valgus deformity. There is a small plantar spur. There is soft tissue swelling over the medial aspect of the 1st distal metatarsal. IMPRESSION: Moderate hallux valgus deformity. No acute bony abnormality. Reviewed, Interpreted and Dictated by Mauro Perry MD Transcribed by Risa Menezes Authenticated and [facility]
== END ==
LOC: RAD 09:46
PROVIDERS: PCP Internal Medicine; Visit Provider Podiatrist
DX: M79.672 Pain in left foot (principal); M79.671 Pain in right foot
CPT/HCPCS: 73630

== ENCOUNTER → 2021-12-07 10:21 | Outpatient (CLI) | payer OTHER, SELFPAY ==
[2021-12-07 15:50] LABS: Basophils # 0.1 K/mm3 (0-0.2); Basophils % 1.2 % (0.1-2.0); Eosinophils # 0.2 K/mm3 (0.0-0.4); Eosinophils % 2.8 % (0.1-12.0); Hematocrit 40.8 % (37.0-47.0); Hemoglobin 13.3 g/dL (12.2-16.2); Lymphocytes % 30.9 % (10-50); Mean Corpuscular HGB Conc 32.7 g/dL (31.8-35.4); Mean Corpuscular Hemoglobin 31.6 pg (27.0-31.2); Mean Corpuscular Volume 96.8 fl (81-99); Mean Platelet Volume 9.4 fl (7.4-10.4); Monocytes # 0.2 K/mm3 (0.1-1.0); Monocytes % 3.8 % (1.7-9.3); Neutrophils # 3.9 K/mm3 (1.8-7.8); Neutrophils % 61.3 % (37.0-80.0); Platelet Count 304 K/mm3 (142-424); Red Blood Count 4.22 M/mm3 (4.20-5.40); Red Cell Distribution Width 13.8 % (11.5-17.5); White Blood Count 6.3 K/mm3 (4.8-10.8)
[2021-12-07 16:23] LABS: Alanine Aminotransferase 19 U/L (12-78); Albumin/Globulin Ratio 1.3 (1.1-1.8); Alkaline Phosphatase 80 U/L (38-126); Anion Gap 16.9 mEq/L (5-15); Aspartate Amino Transferase 40 U/L (14-36); Bilirubin,Total 0.5 mg/dl (0.2-1.3); Blood Urea Nitrogen 23 mg/dl (7-17); Calcium 8.8 mg/dl (8.4-10.2); Carbon Dioxide 24 mmol/L (22.0-30.0); Chloride 103 mmol/L (98-107); Chol/HDL Ratio 3.5 (1-3.5); Cholesterol 194 mg/dl (140-200); Estimated Glomerular Filt Rate 65 ml/min (>60); GFR (African American) 78 ML/MIN (>60); Globulin 3.1 g/dL (1.3-3.2); Glucose 74 mg/dl (74-100); HDL Cholesterol 55 mg/dl (40-60); Potassium 3.9 mmoL/L (3.5-5.1); Sodium 140 mmol/L (136-145); Total Protein,Serum 7.1 g/dl (6.3-8.2); Triglycerides 101 mg/dl (30-150); VLDL Cholesterol 20 mg/dL (0-40)
[2021-12-07 16:55] LABS: Thyroid Stimulating Hormone 6.16 uIU/mL (0.465-4.68)
[2021-12-07 17:14] LABS: Direct LDL Cholesterol 100.24 mg/dL (100-129)
== END ==
LOC: LAB.DROPOF 14:18
PROVIDERS: PCP Internal Medicine; Visit Provider Internal Medicine
DX: I10 Essential (primary) hypertension (principal); E03.9 Hypothyroidism, unspecified; G60.9 Hereditary and idiopathic neuropathy, unspecified; J44.9 Chronic obstructive pulmonary disease, unspecified
CPT/HCPCS: 80053; 80061; 84443; 85025

== ENCOUNTER → 2021-12-15 08:49 | Outpatient (CLI) | payer OTHER, SELFPAY ==
--- NOTE | 2021-12-15 09:03 | XR_ITS ---
FINAL REPORT CLINICAL HISTORY: RIGHT KNEE PAIN stiffness FINDINGS: RIGHT KNEE Three views of the right knee reveal no evidence of fracture or dislocation. The bony alignment is normal. The joint spaces are preserved. There is no evidence of joint effusion. No localized soft tissue abnormality is identified. IMPRESSION: No acute abnormality identified. Reviewed, Interpreted and Dictated by Kiel Hogan III, MD Transcribed by Risa Menezes Authenticated and [facility]
== END ==
LOC: RAD 08:51
PROVIDERS: PCP Internal Medicine; Visit Provider Internal Medicine
DX: M25.562 Pain in left knee (principal)
CPT/HCPCS: 73562

== ENCOUNTER → 2022-02-09 09:14 | Outpatient (CLI) | payer OTHER, SELFPAY ==
--- NOTE | 2022-02-09 09:24 | ECG_ITS ---
APPROVED REPORT Exam: Resting ECG HR:72 bpm ECG Measurements Heart Rate 72 AXES VA 209 P 71 QRSd 107 QRS 22 QT 406 T 57 QTc 430 Conclusion SINUS RHYTHM NORMAL ECG Electronically signed by : Tanner Sutherland MD 02/12/2022 11:31:58
[2022-02-09 13:21] LABS: Anion Gap 12.5 mEq/L (5-15); Blood Urea Nitrogen 33 mg/dl (7-17); Calcium 9.4 mg/dl (8.4-10.2); Carbon Dioxide 29 mmol/L (22.0-30.0); Chloride 101 mmol/L (98-107); Estimated Glomerular Filt Rate 51 ml/min (>60); GFR (African American) 62 ML/MIN (>60); Glucose 89 mg/dl (74-100); Potassium 3.5 mmoL/L (3.5-5.1); Sodium 139 mmol/L (136-145)
== END ==
PROVIDERS: PCP Internal Medicine; Visit Provider Internal Medicine
DX: R07.9 Chest pain, unspecified (principal); I10 Essential (primary) hypertension
CPT/HCPCS: 80048; 93005

== ENCOUNTER → 2022-02-10 08:41 | Outpatient (CLI) | payer OTHER, SELFPAY ==
--- NOTE | 2022-02-10 08:44 | MR_ITS ---
FINAL REPORT CLINICAL HISTORY: knee pain. KNEE POPPING AND INSTABILITY. NO INJURY OR TRAUMA. MEDIAL SIDED KNEE PAIN. FINDINGS: Multiplanar MR imaging of the right knee was performed without contrast. The medial and lateral menisci are intact without evidence of meniscal tear. The anterior and posterior cruciate ligaments are intact. The medial collateral ligament and lateral ligamentous complex are intact. The patellar and quadriceps tendons are intact. There is a small osteochondral lesion of the medial femoral condyle measuring 4 mm in transverse dimension. There is also subchondral cyst in the medial aspect of the medial femoral condyle. There is mild patellar chondromalacia. There is bone marrow edema in the lateral patellar facet. Small joint effusion is seen. The musculature is intact. Moderate popliteal cyst is identified. There is a lobular fluid collection posterior to the medial distal femur measuring 24 mm, likely a ganglion. IMPRESSION: Osteochondral lesion of the medial femoral condyle as well as a subchondral cyst. Likely a ganglion in the femur. Mild patellar chondromalacia. Reviewed, Interpreted and Dictated by Kiel Hogan III, MD Transcribed by Yulia Casey Authenticated and . [facility]
== END ==
LOC: RAD 08:41
PROVIDERS: PCP Internal Medicine; Visit Provider Orthopaedic Surgery
DX: M25.561 Pain in right knee (principal)
CPT/HCPCS: 73721

== ENCOUNTER 2022-03-11 09:12 | Emergency (ER) | payer OTHER, SELFPAY ==
[2022-03-11 10:00] VITALS: BP 156/79; PULSE 103; RESP 20; TEMP 37.1; O2SAT 98; BMI 24.3
[2022-03-11 10:06] LABS: UTC Influenza A Antigen Negative (Negative)
[2022-03-11 10:07] LABS: UTC Influenza B Antigen Negative (Negative)
--- NOTE | 2022-03-11 10:11 | EXP.UTC ---
Discharge Plan Disposition Patient Disposition: Home, Self-Care Condition: Good Prescriptions Prescriptions: New azithromycin [Zithromax] 250 mg tablet 250 mg PO UD DOSE PK Qty: 6 0RF Rx Instructions: Take two (2) tablets today, then one (1) tablet days #2 thru #5 benzonatate [benzonatate] 100 mg capsule 100 mg PO TIDP PRN (Reason: Cough) Qty: 30 0RF methylprednisolone 4 mg Tablets,Dose Pack 4 mg PO DIRECTED Qty: 21 0RF No Action buprenorphine-naloxone 8-2 mg film 1.5 film SUBLINGUAL DAILY Label Comments: DISSOLVE ONE FILM AND A HALF UNDER THE TONGUE EVERY DAY lisinopril-hydrochlorothiazide 20-12.5 mg tablet 1 tab PO DAILY amlodipine 10 mg tablet 10 mg PO DAILY mupirocin 2 % ointment 1 applic topical BID 21 Days Qty: 22 1RF Rx Instructions: Apply to affected area up to twice daily pantoprazole 40 mg tablet,delayed release (DR/EC) 40 mg PO DAILY levothyroxine 150 mcg tablet 150 mcg PO DAILY Referrals Follow up/Referrals: Tanner Sutherland MD [Primary Care Provider] - See instructions Activity Restrictions/Add. Instructions Additional Instructions/Restrictions: Drink plenty of fluids. Take tylenol or ibuprofen for pain or fever. Take the medications as directed. Follow up with your regular doctor. GO TO THE ER FOR ANY WORSENING SYMPTOMS Quarantine until you know the results of your covid-19 test. Notify your school or workplace of your results and follow their instructions regarding return to work/school. Clinical Impressions Clinical Impression: Sinusitis, Acute viral syndrome, Exposure to 2019 novel coronavirus Stand Alone Forms Stand Alone Forms: Work/School Release Instructions Patient Instructions: DI for Sinusitis, Coronavirus Disease 2019, Preventing the Spread of Coronavirus Discharge Instructions Discharge ED Provider: Tejinder Chu [facility] General Stated complaint: body aches headache sickness Time Seen by Provider: 03/11/22 10:10 History of Present Illness Provider Complaint: She states that for the past 2 days she has had chills, low grade fever, sinus congestion and a dry cough. Related Data Home Medications Medication Instructions Recorded Confirmed buprenorphine 8 mg-naloxone 2 mg 1.5 film sublingual DAILY . 03/03/20 03/11/22 sublingual film lisinopril 20 1 tab PO DAILY . 09/02/21 03/11/22 mg-hydrochlorothiazide 12.5 mg tablet amlodipine 10 mg tablet 10 mg PO DAILY . 02/04/22 03/11/22 levothyroxine 150 mcg tablet 150 mcg PO DAILY thyroid 03/11/22 03/11/22 pantoprazole 40 mg tablet,delayed 40 mg PO DAILY GERD 03/11/22 03/11/22 release Previous Rx's Medication Instructions Recorded mupirocin 2 % topical ointment 1 applic topical BID cellulitis 3 02/04/22 weeks #22 grams azithromycin 250 mg tablet 250 mg PO UD DOSE PK #6 tabs 03/11/22 (Zithromax) benzonatate 100 mg capsule 100 mg PO TIDP PRN Cough #30 caps 03/11/22 methylprednisolone 4 mg tablets in 4 mg PO DIRECTED #21 tabs 03/11/22 a dose pack Allergies Allergy/AdvReac Type Severity Reaction Status Date / Time gabapentin [GABAPENTIN] Allergy Unknown NA-NAUSEA/V Verified 03/11/22 10:12 OMITING naproxen [NAPROXEN] Allergy Unknown NA-NAUSEA/V Verified 03/11/22 10:12 OMITING PFSH PFSH Disclaimer: The information contained in this section may have been updated after the patient was seen, as this information can be updated by other users. Medical History Foot pain, bilateral Social History Smoking Status: Current every day smoker tobacco type: cigarettes packs per day: 1 alcohol intake: never current occupational status: employed Travel in the last 8 weeks: None household members: none housing: house caffeine: Yes ROS Obtained: Yes All systems reviewed & no additional comp
[2022-03-11 10:50] VITALS: BP 156/79; PULSE 103; RESP 20; TEMP 37.1; O2SAT 98
== END 2022-03-11 10:50 | disposition home or self-care (01) ==
PROVIDERS: Emergency Provider Nurse Practitioner Family; PCP Internal Medicine
DX: U07.1 COVID-19 (principal); J32.9 Chronic sinusitis, unspecified
CPT/HCPCS: 87804; 99212; 99213; C9803; G0463; U0003; U0005

== ENCOUNTER → 2022-05-06 08:24 | Outpatient (CLI) | payer OTHER, SELFPAY ==
--- NOTE | 2022-05-06 08:24 | US_ITS ---
FINAL REPORT TECHNIQUE: Ultrasound images of the kidneys were obtained. CLINICAL HISTORY: Z82.49 - Family history of ischemic heart disease and oth... FINDINGS: US RETROPERITONEAL The right kidney measures 9.8 cm in length. It is normal in echogenicity. There is no hydronephrosis. The left kidney measures 9.4 cm in length. It is normal in echogenicity. There is no hydronephrosis. The spleen measures 10.4 cm in length. IMPRESSION: Unremarkable exam. Reviewed, Interpreted and Dictated by Kiel Hogan III, MD Transcribed by Risa Menezes Authenticated and [facility]
--- NOTE | 2022-05-06 08:34 | CA_ITS ---
FINAL REPORT TECHNIQUE: Grayscale, color Doppler and duplex Doppler ultrasound of the kidneys, aorta and renal arteries was performed. Multiple velocities were measured. CLINICAL HISTORY: HTN,SMOKER,HLD FINDINGS: Aorta velocity: 93 cm/sec Right kidney: 10.2 cm. No evidence of hydronephrosis or mass. Right intrarenal RI: 0.63 Right renal artery velocity: 210 cm/sec. Right RAR (Renal artery-Aortic Ratio): 2.3 Left Kidney: 9.6 cm. No evidence of hydronephrosis or mass. Left intrarenal RI: 0.52 Left renal artery velocity: 144 cm/sec. Left RAR (Renal Artery-Aortic Ratio): 1.6 IMPRESSION: Elevated velocity in the right renal artery consistent with less than 60% right renal artery stenosis. Recommend CTA or catheter angiogram for further evaluation. No evidence of renal artery stenosis on the left. Reviewed, Interpreted and Dictated by Kiel Hogan III, MD Transcribed by Risa Menezes Authenticated and [facility]
== END ==
LOC: RAD 08:24
PROVIDERS: PCP Internal Medicine; Visit Provider Nurse Practitioner
DX: I10 Essential (primary) hypertension (principal); R06.00 Dyspnea, unspecified; R07.89 Other chest pain; R94.31 Abnormal electrocardiogram [ECG] [EKG]; Z72.0 Tobacco use; Z82.49 Family history of ischemic heart disease and other diseases of the circulatory system
CPT/HCPCS: 76770; 93976

== ENCOUNTER → 2022-05-07 12:16 | Outpatient (CLI) | payer OTHER, SELFPAY | LOC: LAB.DROPOF 12:17 | PROVIDERS: PCP Internal Medicine; Visit Provider Internal Medicine | DX: I10 Essential (primary) hypertension (principal); E03.9 Hypothyroidism, unspecified | CPT/HCPCS: 84443 ==

== ENCOUNTER → 2022-05-12 07:04 | Outpatient (CLI) | payer OTHER, SELFPAY ==
--- NOTE | 2022-05-12 | CA_ITS ---
APPROVED REPORT Exam: Pharmacologic Technologist: Jennifer Harmon Ht: 5 ft 4 in Wt: 144 lbs BSA: 1.70 m2 HR: 78 bpm BP: 169/102 mmHg Indications: Shortness of Air Medical History Medications: Levothyroxine,,,,, Pantoprazole,,,,, BuPRenorphinE,,,,, Valsartan-HCTZ,,,,, Stress Test Details Test: LEXISCAN Reversal agent Aminophyline 100.0 mg, given intravenously for headache. HR Resting HR: 88 bpm Max Heart Rate (APMHR): 163.515514 bpm Max HR Achieved: 129 bpm Target HR (85% APMHR): 138.447297 bpm % of APMHR: 79.14 Recovery HR: 92 bpm BP Resting BP: 169.0/102.0 mmHg Max BP: 198.0/128.0 mmHg Recovery BP: 193.0/20.0 mmHg ECG Resting ECG: Normal sinus rhythm, First degree AV block, otherwise normal Clinical Exercise duration: 04:00 min Highest Stage Achieved: Exercise capacity: 1.0 METs Stress ECG Conclusion Symptoms: Malaise, shortness of breath, headace. No chest pain. Arrhythmias/Ectopy: None ST-T Changes: Approximately 1-1.[address] depression inferiorly and 0.5 mm horizontally. Conclusion: EKG changes suggestive of ischemia. Myoview images reported separately. After second set of images, patient's blood pressure was 160/100. Test Summary REST . . . . . . . Resting REST 07:22 . . 88 . 169/102 . . Stage 1 . . . . . . . Myoview Injected Stage 1 01:00 . . 127 . . . . Stage 2 01:00 . . 113 . 175/119 . . Stage 3 01:00 . . 101 . 177/115 . . Stage 4 01:00 . . 96 . 186/112 . Stop exercise at 04:00 RECOVERY 01:00 . . 96 . 198/128 . . RECOVERY 02:00 . . 93 . 198/128 . . RECOVERY 03:00 . . 90 . 198/128 . . RECOVERY 04:00 . . 91 . 182/114 . . RECOVERY 05:00 . . 85 . 186/111 . . RECOVERY 06:00 . . 85 . 186/111 . . RECOVERY 07:00 . . 90 . 193/120 . . RECOVERY 08:00 . . 77 . 194/104 . . RECOVERY 09:00 . . 79 . 194/104 . . RECOVERY 10:00 . . 91 . 184/104 . . RECOVERY 10:08 . . 90 . 184/104 . . Electronically signed by : Mt Loza MD 05/12/2022 13:12:55
--- NOTE | 2022-05-12 07:04 | NM_ITS ---
APPROVED REPORT Exam: Nuclear Stress Test Indication: chest pain..soa..fatigue Patient Location: Outpatient Stress Tech: Jennifer Harmon NM Tech:Candy Donald RAISA RT(R)(N) Ht: 5 ft 4 in Wt: 144 lbs Bra Size: 36c HR: 88 bpm BP: 169/102 mmHg BSA: 1.70 m2 TID: 1.02 BMI: 24.7 History: chest pain..soa..fatigue Procedure: Patient received 0.4 mg of intravenous Lexiscan, resting heart rate 88 bpm, resting blood pressure 169/102 mmHg, with Lexiscan maximum heart rate achieved was 129 bpm which is 85 % of the maximum predicted heart rate and blood pressure was 198/128 mmHg. With Lexiscan, patient denied any complaint of chest pain. Electrocardiogram Resting electrocardiogram shows sinus rhythm, with Lexiscan there is less than 1.[address] segment depression noted from the baseline EKG. The EKG portion of the Lexiscan is nondiagnostic. Cardiac Stress and Resting SPECT Images: Cardiac Stress and Resting SPECT images were obtained using technetium 99m Myoview 32.7 mCi stress and 10.80 mCi at rest. Gated SPECT analysis of segmental wall motion and calculation of the ejection fraction also done. Prone images were also obtained. Cardiac prone images show uniform myocardial activity without segmental perfusion abnormality, computer derived ejection fraction is 63% with no regional wall motion abnormality, right ventricle is normal size and contractility. Conclusion: 1. The EKG portion of the Lexiscan is nondiagnostic. 2. No scintigraphic evidence of reversible ischemia seen, computer derived ejection fraction 63% with no regional wall motion abnormality, right ventricle is normal size and contractility. 3. Normal Lexiscan Myoview study. Electronically signed by : Mt Loza MD 05/12/2022 13:26:34
--- NOTE | 2022-05-12 08:21 | CA_ITS ---
APPROVED REPORT EXAM: Comprehensive 2D, Doppler, and color-flow Echocardiogram Pulp Plant Supervisor: Vilma Clinton CRT Ht: 5 ft 4 in Wt: 147lbs BSA: 1.72 BP: 208/117 mmHg Indications: Abnormal ECG, Shortness of Breath, Hypertension/HDD,smoker 2D Dimensions LVOT 1.65 cm (M/F) 1.5-2.5 LA Volume 19.20 mL LA Volume Index 10.90 mL/m2 (M/F) 16-34 M-Mode Dimensions RVDd 2.07 cm (0.9-2.6) LA Diam 2.90 cm (1.9-4.0) LVDd 3.35 cm (3.5-5.7) Ao Diam 3.53 cm (2.0-3.7) LVDs 2.27 cm (3.5-5.7) IVSd 1.51 cm (0.6-1.1) PWd 0.76 cm (0.6-1.1) EF (Teich) 61.80% FS 32.20% EDV (Teich) 45.80 mL TAPSE 2.33 (<1.7) ESV (Teich) 17.50 mL LV Diastology E Decel Time 247.00 (160-240 msec) E/A Ratio 0.83 MED E' 6.50 (< 7 cm/sec) MED A' 8.40 cm/s E'/MED E' Ratio 12.75 (>14) LAT E' 6.60 (<10 cm/sec) LAT A' 8.80 cm/s E/LAT E' Ratio 12.56 (>14) Aortic Valve AO Peak GR. 6.20 mmHg Mitral Valve MV E Max Arnol. 83.00 (40-130 cm/s) MV A Velocity 99.00 (40-130 cm/s) E/A Ratio 0.83 MV Decel. Time 247.00 (160-240 ms) MV PHT 72.00 ms Pulmonary Valve PV Peak Velocity 87.00 (50-150 cm/s) Tricuspid Valve TR P. Velocity 200.00 cm/s RAP Estimate 10.00 mmHg RVSP 25.90 mmHg Left Ventricle Left atrium is mildly enlarged, left ventricle is normal size mild concentric left ventricular hypertrophy, estimated ejection fraction 55% with no regional wall motion abnormality, grade 1 diastolic dysfunction seen without tissue Doppler evidence of raise left atrial pressure. Right Ventricle Right atrium and right ventricular normal size and contractility. Aortic Valve Aortic valve is grossly normal there is no aortic stenosis or aortic insufficiency. Mitral Valve Mitral valve is grossly normal, there is trace mitral regurgitation. Tricuspid Valve Tricuspid valve grossly normal, there is trace tricuspid regurgitation, tricuspid regurgitation jet velocity is inadequate for calculation of the right ventricular systolic pressure. Pulmonic Valve Pulmonic valve is poorly visualized. Great Vessels Aortic root is normal size. Inferior vena cava is normal size with normal inspiratory collapse. Pericardium No significant pericardial effusion noted. Conclusion 1. Mildly enlarged left atrium, normal left ventricular size mild concentric left ventricular hypertrophy, estimated ejection fraction of 55% with no regional wall motion abnormality, grade 1 diastolic dysfunction seen without tissue Doppler evidence of raised left atrial pressure. 2. Trace mitral and tricuspid regurgitation. 3. No significant pericardial effusion noted. 4. Inferior vena cava is normal size with normal inspiratory collapse. Electronically signed by : Mt Loza MD 05/13/2022 05:56:46
== END ==
LOC: RAD 07:04
PROVIDERS: PCP Internal Medicine; Visit Provider Nurse Practitioner
DX: R06.00 Dyspnea, unspecified (principal); R07.89 Other chest pain; I10 Essential (primary) hypertension; R94.31 Abnormal electrocardiogram [ECG] [EKG]; Z72.0 Tobacco use; Z82.49 Family history of ischemic heart disease and other diseases of the circulatory system
CPT/HCPCS: 78452; 93017; 93306; A9502; J0280; J2785

== ENCOUNTER 2022-07-08 08:43 | Emergency (ER) | payer OTHER, SELFPAY ==
[2022-07-08 08:45] VITALS: BP 130/89; PULSE 101; RESP 20; TEMP 37.3; O2SAT 100; BMI 24.9
[2022-07-08 09:12] LABS: UTC Influenza A Antigen Negative (Negative); UTC Influenza B Antigen Negative (Negative)
--- NOTE | 2022-07-08 09:29 | EXP.UTC ---
Discharge Plan Disposition Patient Disposition: Home, Self-Care Condition: Good Prescriptions Prescriptions: New benzonatate 100 mg capsule 100 mg PO TID PRN (Reason: cough) Qty: 30 0RF methylprednisolone [Medrol (Avni)] 4 mg tablets,dose pack See Rx Instructions .Route .COMPLEX 6 Days Qty: 21 0RF Rx Instructions: taper pack; guaifenesin [Mucinex] 600 mg tablet extended release 12hr 600 mg PO BID PRN (Reason: cough) Qty: 20 0RF azithromycin [Zithromax Z-Avni] 250 mg tablet See Rx Instructions .ROUTE .COMPLEX 5 Days Qty: 6 0RF Rx Instructions: For 250 mg dose pack: take 500 mg today (day 1), then 250 mg for 4 days (days 2-5) No Action buprenorphine-naloxone 8-2 mg film 1.5 film SUBLINGUAL DAILY Label Comments: DISSOLVE ONE FILM AND A HALF UNDER THE TONGUE EVERY DAY levothyroxine 175 mcg tablet 175 mcg PO DAILY carvedilol [Coreg] 6.25 mg tablet 6.25 mg PO BID Qty: 60 3RF Rx Instructions: must administer with a meal/food valsartan-hydrochlorothiazide 160-12.5 mg tablet 1 tab PO BID Qty: 60 5RF pantoprazole 40 mg tablet,delayed release (DR/EC) 40 mg PO DAILY Referrals Follow up/Referrals: Tanner Sutherland MD [Primary Care Provider] - See instructions Activity Restrictions/Add. Instructions Additional Instructions/Restrictions: Start antibiotic today. Be sure to complete entire prescription even if feeling better Monitor temp. Tylenol every 4 hours as needed and / or ibuprofen every 6 hours as needed ( As long as your primary care physician has told you that it ok to take both. For fever/aches/pains ER if no less than 101 despite Tylenol or Motrin Humidifier/vaporizer or hot steamy shower Mucinex during the day for your cough and cough suppressant only at night. Be sure to drink lots of water. *Tessalon Perles will not cause drowsiness but use at bedtime to help stop cough so that you may get some rest. *Start steroid today. Helps with inflammation therefore, cough and wheezing. Follow directions on the package. Reviewed side effects. Patient reports taking them before. Follow up IMMEDIATELY for new or worsening of symptoms OR no noticeable improvement over the next 48-72 hours. 911 immediately for any life threatening symptoms such as chest pain or difficulty breathing Clinical Impressions Clinical Impression: Sinusitis, Bronchitis Instructions Patient Instructions: DI for Sinusitis, Sinusitis Discharge ED Provider: Tianna Waters [facility] HPI General Stated complaint: fever, vomiting, body aches, HERNANDEZ Mode of Arrival: Ambulatory Source of Information: Patient Limitations: No Limitations Time Seen by Provider: 07/08/22 09:31 Description of Symptoms (Recalled from Triage Doc. by RN): pt c/o a HERNANDEZ, myalgia, n/v, fever, and a productive cough with dark green sputum. x1wk HEENT Symptoms (Recalled from RN notes): Yes Resp Symptoms (Recalled from RN notes): Yes Skin Symptoms (Recalled from RN notes): No MS Symptoms (Recalled from RN notes): No Functional Status (Recalled from RN notes): wnl History of Present Illness Provider Complaint: Patient states that she has been having sinus congestion and pressure, drainage in the back of her throat, cough and at times she does cough up some mucus at times States today she was feeling achy all over with headache and chills States that chest congestion has been for about a week Also wants tested for COVID and Flu Related Data Home Medications Medication Instructions Recorded Confirmed buprenorphine 8 mg-naloxone 2 mg 1.5 film sublingual DAILY . 03/03/20 06/15/22 sublingual film pantoprazole 40 mg tablet,delayed 40 mg PO DAILY GERD 03/11/22 06/15/22 release levothyroxine 175 mcg tablet 175 mcg PO DAILY 05/18/22 06/15/22 Previous Rx's Medication Instructions Recorded carvedilol 6.25 mg tablet (Coreg) 6.25 mg PO BID #60 tabs 05/18/22 valsartan 160
[2022-07-08 09:47] VITALS: BP 130/89; PULSE 101; RESP 20; TEMP 37.3
== END 2022-07-08 09:50 | disposition home or self-care (01) ==
PROVIDERS: Emergency Provider Nurse Practitioner; PCP Internal Medicine
DX: J20.9 Acute bronchitis, unspecified (principal); J01.90 Acute sinusitis, unspecified; F17.210 Nicotine dependence, cigarettes, uncomplicated; Z20.822 Contact with and (suspected) exposure to COVID-19
CPT/HCPCS: 87635; 87804; 99212; 99214; C9803; G0463; U0003; U0005

== ENCOUNTER → 2022-08-16 09:54 | Outpatient (CLI) | payer OTHER, SELFPAY ==
--- NOTE | 2022-08-16 10:13 | ECG_ITS ---
APPROVED REPORT Exam: Resting ECG HR:61 bpm ECG Measurements Heart Rate 61 AXES W[place] 209 P 30 QRSd 110 QRS -7 QT 421 T 28 QTc 423 Conclusion SINUS RHYTHM WITH SINUS ARRHYTHMIA NORMAL ECG UNCONFIRMED REPORT Electronically signed by : Hasmukh Hanna MD 08/16/2022 21:26:13
--- NOTE | 2022-08-16 10:23 | XR_ITS ---
FINAL REPORT CLINICAL HISTORY: right foot pain COMPARISON: 09/02/2021 FINDINGS: RIGHT FOOT: Three views of the right foot were obtained. There is no acute fracture or dislocation. There is a severe hallux valgus deformity not significantly changed in appearance since the prior films of August 2021. Mild degenerative change is noted in the right foot. A small plantar calcaneal spur is present. There is no soft tissue abnormality. IMPRESSION: No acute bony abnormality. Severe hallux valgus deformity not changed since August 2021. Reviewed, Interpreted and Dictated by Kiel Hogan III, MD Transcribed by Cathi De Santiago Authenticated and [facility]
--- NOTE | 2022-08-16 10:23 | XR_ITS ---
FINAL REPORT CLINICAL HISTORY: pain of lower extremity FINDINGS: Two views of the chest were obtained. The heart size and pulmonary vascularity are within normal limits. The mediastinum is normal. No acute pulmonary abnormality is identified. There is no pneumothorax. The bony thorax is intact. There is mild linear atelectasis versus scar present in the left lung base. IMPRESSION: No active cardiopulmonary disease. Reviewed, Interpreted and Dictated by Kiel Hogan III, MD Transcribed by Cathi De Santiago Authenticated and [facility]
[2022-08-16 10:59] LABS: Basophils # 0.1 K/mm3 (0-0.2); Basophils % 0.8 % (0.1-2.0); Eosinophils # 0.1 K/mm3 (0.0-0.4); Eosinophils % 1.7 % (0.1-12.0); Hematocrit 41.1 % (37.0-47.0); Hemoglobin 13.4 g/dL (12.2-16.2); Lymphocytes % 30.4 % (10-50); Mean Corpuscular HGB Conc 32.7 g/dL (31.8-35.4); Mean Corpuscular Hemoglobin 30.6 pg (27.0-31.2); Mean Corpuscular Volume 93.8 fl (81-99); Mean Platelet Volume 8.5 fl (7.4-10.4); Monocytes # 0.3 K/mm3 (0.1-1.0); Monocytes % 4.8 % (1.7-9.3); Neutrophils # 4.1 K/mm3 (1.8-7.8); Neutrophils % 62.3 % (37.0-80.0); Platelet Count 273 K/mm3 (142-424); Red Blood Count 4.38 M/mm3 (4.20-5.40); Red Cell Distribution Width 14.1 % (11.5-17.5); White Blood Count 6.6 K/mm3 (4.8-10.8)
[2022-08-16 11:22] LABS: Alanine Aminotransferase 24 U/L (12-78); Albumin Level 4.3 g/dl (3.5-5.0); Albumin/Globulin Ratio 1.5 (1.1-1.8); Alkaline Phosphatase 78 U/L (38-126); Anion Gap 15.5 mEq/L (5-15); Aspartate Amino Transferase 33 U/L (14-36); Bilirubin,Total 0.4 mg/dl (0.2-1.3); Blood Urea Nitrogen 21 mg/dl (7-17); Carbon Dioxide 25 mmol/L (22.0-30.0); Chloride 105 mmol/L (98-107); Erythrocyte Sedimentation Rate 15 mm/hr (0-30); Estimated Glomerular Filt Rate 65 ml/min (>60); GFR (African American) 78 ML/MIN (>60); Globulin 2.9 g/dL (1.3-3.2); Glucose 102 mg/dl (74-100); Potassium 3.5 mmoL/L (3.5-5.1); Sodium 142 mmol/L (136-145); Total Protein,Serum 7.2 g/dl (6.3-8.2)
[2022-08-16 11:27] LABS: C-Reactive Protein 2.2 mg/L (0-4)
[2022-08-18 10:28] LABS: Thyroid Stimulating Hormone 6.32 uIU/mL (0.465-4.68)
[2022-08-23 00:05] LABS: 1,25 Dihydroxy Vitamin D 60 pg/mL (.); 1,25-Dihydroxy, Vitamin D-2 <10 pg/mL (.); 1,25-Dihydroxy, Vitamin D-3 55 pg/mL (.)
[2022-09-06 23:33] LABS: Nicotine 7.5
[2022-09-06 23:34] LABS: Cotinine 112.5
== END ==
PROVIDERS: PCP Internal Medicine; Visit Provider Podiatrist
DX: Z01.818 Encounter for other preprocedural examination (principal); M19.071 Primary osteoarthritis, right ankle and foot; M19.072 Primary osteoarthritis, left ankle and foot; B35.3 Tinea pedis; M20.10 Hallux valgus (acquired), unspecified foot; Z72.0 Tobacco use; M21.861 Other specified acquired deformities of right lower leg; M76.61 Achilles tendinitis, right leg; M20.11 Hallux valgus (acquired), right foot; M20.12 Hallux valgus (acquired), left foot; M21.862 Other specified acquired deformities of left lower leg
CPT/HCPCS: 36415; 71046; 73630; 80053; 80323; 82652; 84443; 85025; 85651; 86140; 93005

== ENCOUNTER 2022-08-26 09:52 | Day surgery (SDC) | payer OTHER, SELFPAY ==
--- NOTE | 2022-08-23 16:27 | SUR.PREOP ---
Attempted pre op phone call, pt did not answer. Message left w/ call back #
[2022-08-25 10:46] VITALS: BMI 24.9
[2022-08-26] VITALS (10 sets, daily range): BP systolic 155–179; BP diastolic 85–99; PULSE 62–90; RESP 16–17; TEMP 36.2–43; O2SAT 95–98
--- NOTE | 2022-08-26 | XR_ITS ---
FINAL REPORT CLINICAL HISTORY: FOOT IN OR, FT 1:15 FINDINGS: FLUOROSCOPY Four spot films of the right foot were obtained in the operating room utilizing 1.2 minutes. IMPRESSION: Fluoroscopy as above. Reviewed, Interpreted and Dictated by Kiel Hogan III, MD Transcribed by Yulia Casey Authenticated and . [facility]
--- NOTE | 2022-08-26 12:27 | P.PN_ITS ---
[facility] Disclaimer: The information contained in this section may have been updated after the patient was seen, as this information can be updated by other users. Medical History Edema Foot pain, bilateral Hemorrhoid History of anemia History of COVID-19 History of gastroesophageal reflux (GERD) History of hypertension History of hypothyroidism Migraine Renal artery stenosis Surgical History History of surgery LEFT SHOULDER SX History of surgery LEFT HAND SX Hx of section Hx of tubal ligation Family History Heart attack Cancer Social History (Updated 08/26/22 @ 11:05 by Jeanette Edmondson RN) Smoking Status: Current every day smoker tobacco type: cigarettes packs per day: 1 alcohol intake: never substance use type: opiates current occupational status: employed Travel in the last 8 weeks: None housing: house caffeine: Yes [facility] Anesthesia Checklist Patient Identification Patient Identification: Arm Band Structural Data Admitted From: Home Planned Operative Procedure/s: Right Lapidus Bunionectomy Consent for Planned Operative Procedure(s) Verified: Yes Verified Documents: Surgical Consent and History and Physical NPO Status Verified Time NPO: 00:00 Additional verifications Anesthesia Reactions: No Hx Blood Transfusions: No Blood Transfusion Reaction: No Airway Assessment C-Spine Mobility Assessed: Yes TMJ Mobility Assessed: Yes Dentition: Good Dentition Neurological Assessment Level of Consciousness: Awake and Alert Anesthesia Plan Anesthesia Risk discussed: Yes Anesthesia Plan: Verified ASA Class: II Anesthesia Type: General w/block (right popliteal/adductor canal nerve blocks. Risks/benefits explained. Pt verbalized understanding)
--- NOTE | 2022-08-26 13:12 | SUR.OPER ---
1310- Called to preop and spoke with SCOUT Johnson asking that he update this patient's family of the start of surgery per 's request.
--- NOTE | 2022-08-26 14:40 | SUR.OPER ---
1432- Via phone call, patient's daughter was updated that is starting to close, per 's request.
--- NOTE | 2022-08-26 15:01 | XR_ITS ---
FINAL REPORT CLINICAL HISTORY: Post op bunion COMPARISON: 08/16/2022 FINDINGS: RIGHT FOOT: Three views of the right foot were obtained. Since the prior exam of August 16 the patient has undergone surgery to correct a medial hallux valgus deformity. There is surgical instrumentation overlying the medial cuneiform and the base of the 1st metatarsal. There has been marked improvement in the hallux valgus deformity since the prior exam. The splint that the patient's foot is in somewhat obscures fine detail. IMPRESSION: The patient has undergone correction of a hallux valgus deformity of the right foot as described above. Reviewed, Interpreted and Dictated by Kiel Hogan III, MD Transcribed by Cathi De Santiago Authenticated and . [facility]
--- NOTE | 2022-08-26 15:05 | EXP.ANES.I ---
[facility] Anesthesia Record Part I Anesthesia Record I Intake, IV Amount: 1,300 Estimated blood loss (mL): 10 Urine output (mL): 0 Blood Pressure: 155/89 SaO2: 98 Pulse Rate: 90 Respiratory Rate: 16 Temperature: 98.9 F Patient is:: Awake and Stable Stable to PACU at:: 15:00
--- NOTE | 2022-08-26 15:06 | EXP.OP.NOTE ---
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 The patient has tried modification of shoe gear, taping, strapping, inserts, ice elevation, NSAIDs. After a long discussion with the patient in regards to the conservative versus surgical treatment for the bunion deformity, the patient has elected to proceed with surgery because they have failed conservative treatment and continue to have pain and worsening symptoms affecting daily activities. The patient has been instructed on the planned procedure, all risk versus benefits of the procedure to include bleeding, infection, nerve and blood vessel damage, need for further surgery, failure of implant, delay in healing of soft tissue or bone, failure of bones to heal, non-union, mal-union, prolonged pain and recovery, prolonged swelling, CRPS/RSD, DVT and anesthetic complications. No guarantees were given. All questions fully answered. The patient verbalized understanding and agreed to proceed with surgery. Written consent obtained. Saw cardiology 06/15/22 and was cleared for surgery. Patient has appt with Dr. Sutherland, PCP for medical clearance 08/17/22. She has rolling knee scooter. Operative findings:: Right hallux abductovalgus deformity. First metatarsal cartilage intact to the head. Significant bunion deformity preoperatively. Lateral release performed reducing some of the contracture. Bunion reduced with the Lapidus procedure. There was some instability to the intercuneiform's on the splay test so additional fixation was inserted. Redundant first MPJ capsule medially. Capsulotomy performed. First MPJ range of motion smooth post procedure with no restriction or crepitus. Clinically and radiographically bunion resolved. Operative note:: On this date and time, the patient was deemed an appropriate surgical candidate. With informed consent signed, the patient was taken to the operating theater after anesthesia did a regional nerve block. The patient was positioned supine. General anesthesia was induced. Tourniquet was applied to the thigh. The right lower extremity was prepped and draped in normal sterile fashion. IV Ancef infused. Right calcaneal autograft bone harvest: Attention was directed to the right calcaneus where a an incision was mapped out. Dissection was carried down full-thickness to the level of the bone. Utilizing an autograft bone harvester drill was inserted into the calcaneus and drill. Approximately 5 cc of calcaneus cancellous bone was obtained. Wound was flushed with saline. Nylon used to close the skin. Right Lapidus bunionectomy: Tourniquet was inflated 250 mmHg. Attention directed to the dorsal medial foot where an incision was mapped out over the first metatarsal cuneiform joint. Dissection carried down full-thickness down to the level of the bone with care taken to maintain surgical hemostasis and preserve neurovascular structures. There was arthritic changes noted to the dorsal lateral aspect of the first tarsometatarsal (TMT) joint. First TMT release performed. Attention to is directed to the first interspace where a stab incision was made at the MTP joint just lateral to the EHL tendon. Lateral capsule incised and a complete suspensory ligament release was completed. There was reduction of the hallux valgus deformity noted. Next a pin was inserted dorsal medial parallel to the first TMT joint and the bunion deformity was reduced. Next in standard technique the Lapiplasty 3in1 guide and positioner
--- NOTE | 2022-08-27 10:36 | EXP.ANES.II ---
[facility] Anesthesia Record Part II Anesthesia Record Part II Discharge Time: 15:30 Destination: Surgical Day Care (OP Surgery) PACU nurse assessment reviewed?: Yes Patient Condition:: Good Anesthesia Complications:: None Swallowing reflex intact?: Yes Cyanosis?: No Blood Pressure: 163/91 Pulse Rate: 71 Temperature: 98 F Mental Status: Alert & Oriented Pain level:: 0 Nausea and/or vomitting:: None Intake, IV Amount: 0
[2022-08-27 10:37] VITALS: BP 163/91; PULSE 71; TEMP 36.6
== END 2022-08-26 16:05 | disposition home or self-care (01) ==
PROVIDERS: PCP Internal Medicine; Visit Provider Podiatrist
PROC: (CPT 28297; principal; 2022-08-26 12:30)
DX: M20.11 Hallux valgus (acquired), right foot (principal); M21.861 Other specified acquired deformities of right lower leg; M19.071 Primary osteoarthritis, right ankle and foot; M77.41 Metatarsalgia, right foot; F17.210 Nicotine dependence, cigarettes, uncomplicated; Z79.899 Other long term (current) drug therapy
CPT/HCPCS: 28297; 28615; 27687; 20900; 73620; 73630; 76000; 96374; C1713; C1776; J2405

== ENCOUNTER → 2022-09-23 09:39 | Outpatient (CLI) | payer OTHER, SELFPAY ==
--- NOTE | 2022-09-23 09:43 | XR_ITS ---
FINAL REPORT CLINICAL HISTORY: Foot Pain surgery august 26 COMPARISON: None FINDINGS: RIGHT FOOT: Three views of the right foot were obtained. There is no acute fracture or dislocation. There are postoperative changes in the medial midfoot with a screw plate and multiple screws. There is mild degenerative change noted in the right foot, and a small plantar calcaneal spur. The joint spaces are intact. No acute bony abnormality is identified. IMPRESSION: No acute bony abnormality. Postoperative changes medial aspect right midfoot. Reviewed, Interpreted and Dictated by Kiel Hogan III, MD Transcribed by Cathi De Santiago Authenticated and [facility]
== END ==
PROVIDERS: PCP Internal Medicine; Visit Provider Podiatrist
DX: M79.671 Pain in right foot (principal)
CPT/HCPCS: 73630

== ENCOUNTER → 2022-10-25 12:12 | Outpatient (CLI) | payer OTHER, SELFPAY ==
--- NOTE | 2022-10-25 12:46 | XR_ITS ---
PROCEDURE INFORMATION: Exam: XR Right Foot Complete; Alignment Exam date and time: 10/25/2022 12:50 PM Age: 57 years old Clinical indication: Other: Post op; Prior surgery; Surgery date: 1-6 months; Surgery type: Unknown; Additional info: Postoperative check bone healing TECHNIQUE: Imaging protocol: Radiologic exam of the right foot. Views: 3 or more views. COMPARISON: CR XR FOOT WT BEARING RT 3V 09/23/2022 9:52 AM FINDINGS: Tubes, catheters and devices: Hardware is intact with no evidence of loosening. Joint alignment is unchanged. Bones/joints: Stable appearance of prior 1st tarsometatarsal arthrodesis. Interval increase in disuse osteopenia throughout the right foot compared with 09/23/2022 radiograph. No evidence of acute fracture. 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 Small plantar calcaneal enthesophyte, unchanged. Soft tissues: Normal. IMPRESSION: 1. Stable appearance of prior 1st tarsometatarsal arthrodesis with interval increase in disuse osteopenia throughout the right foot compared with 09/23/2022 radiograph. 2. 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 3. Small plantar calcaneal enthesophyte, also unchanged.
== END ==
PROVIDERS: PCP Internal Medicine; Visit Provider Podiatrist
DX: M79.671 Pain in right foot (principal); Z98.890 Other specified postprocedural states
CPT/HCPCS: 73630

== ENCOUNTER 2022-11-30 09:00 | Outpatient (RCR) | payer OTHER, SELFPAY ==
--- NOTE | 2022-11-01 12:02 | HMH.PTOPEV ---
PT Outpatient Evaluation Rehab PT Outpatient Evaluation Start: 11/01/22 10:51 Freq: Status: Active Protocol: Document 11/01/22 10:51 YUNG (Rec: 11/01/22 12:02 YUNG [id number]) E-signed By Faye Tucker, PT Outpatient Therapy Subjective History Subjective History Pt is a 57 y/o female who reports to PT s/p right lapidus bunionectomy, autograft bone harvest, ORIF cuneiform, and 1st MPJ capsulotomy performed on . Pt reports she had an infection 2 weeks after the surgery and has been receiving wound care but reports she has recently finished with this.Pt recently had a follow- up appointment with the MD on 10/28/22 for the last wound care treatment and was told to starting bearing weight on the RLE in the boot as tolerated. Pt reports they also took repeat xrays and was told the hardware was intact and healing well. Pt reports she does not have a walker or a cane, but she does have crutches. Pt reports she is unable to use the crutches so she has been walking around her kitchen table in the boot to practice, denies pain with this. Pt reports she has a few stairs without HR to enter her home and she has been doing a stand pivot transfer into a stool at the top of her stairs and dragging the knee scooter up the stairs. Pt denies falls since surgery. Pt reports she only has intermittent and brief sharp, shooting pain throught the 2nd toe that only last about 1-2 seconds. Pt reports she continues to have swelling that is worse with increased activity on the knee scooter; however, this improves quickly with rest/elevation. Pt also reports intermittent numbness along the medial dorsum of the foot that is gradually improving. 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 Chief Complaint Pain,Swelling,Weakness Symptom Type Sharp,Shooting Symptoms Relieved By Rest/Positioning,OTC Meds, Elevation Symptoms Aggravated By Standing,Physical Activity, Walking,Lifting Prior Functional Limitations None Current Functional Limitations Lifting,Standing,Squatting, Walking,Stairs,Balance Symptom Description Intermittent Level of pain today (0-10) 0 Pain scale - at its best (0-10) 0 Pain scale - at its worst (0-10) 10 Ankle/Foot Eval Palpation Tenderness right Ankle/Foot Palpation Findings Tenderness Ankle/Foot Palpation Overall Comment 1st MTP, cueneiform ROM Ankle/Foot Dorsiflexion w/Knee Extended 9 Active Range Motion (degrees) Ankle/Foot Plantar Flexion Active Range 18 of Motion (degrees) Ankle/Foot Eversion Active Range of 11 Motion (degrees) Ankle/Foot Inversion Active Range of 18 Motion (degrees) Great Toe Metatarsophalangeal Extension 15 Active Range Motion (degrees) Great Toe Metatarsophalangeal Flexion 10 Active Range of Motion (degrees) MMT Ankle Dorsiflexion Strength Grade 4 Good Ankle Plantarflexion Strength Grade 4- Good- Foot Eversion Strength Grade 4- Good- Foot Inversion Strength Grade 4- Good- Lower Extremity Functional Index Activities Today, do you or would you have any difficulty at all with: a.Any of your usual work, housework or A little bit of difficulty school activities b. Your usual hobbies, recreational or A little bit of difficulty sporting activities c. Getting into or out of the bath No difficulty d. Walking between rooms A little bit of difficulty e. Putting on your shoes or socks No difficulty f. Squatting No difficulty g. Lifting an object, like a bag of No difficulty groceries from the floor h. Performing light activities around No difficulty your home i. Performing heavy activities around No difficulty your home j. Getting into or out of a car No difficulty k. Walking 2 blocks A little bit of difficulty l. Walking a mile A little bit of difficulty m. Going up or down 10 stairs (about 1 A little bit of difficulty flight of stairs) n. Standing for 1 hour No difficulty o. Sitting for 1 hour No difficulty p. Running on even ground A little bit of difficulty q. Running on uneven ground A little bit of difficulty r. Making sharp turns while running fast No difficulty s. Hopping A little bit of difficulty t. Rolling over in bed No difficulty LEFI Score Lower Extremity Functional Index Score 71 Outpatient Therapy Assessment Impairments Problems/Impairmments Palpation Tenderness,Impaired Range of Motion,Impaired Strength,Impaired Gait Pattern ,Impaired Walking,Impaired Standing,Impaired Lifting, Impaired Stair Climbing, Impaired Incline Stepping, Impaired Stepping on Uneven Surface,Impaired Work Activities,Impaired Balance, Increased Edema,Wound Care Needs,Subjective C/O Pain, Impaired Self Care/Self Management Prognosis Rehab Potential Good Clinical Impression Consistent with Diagnosis Yes Short Term Goals Number of Weeks 3 Increase Strength Yes: Improve R ankle MMT by half grade to assist with functional activities Improve Gait Pattern with Assistive Yes: proper gait mechanics FWB Device in boot with LRD to decrease fall risk Improve Ability to Climb Stairs Yes: negotiate 3-4 steps with LRD safely to assist with safe home navigation Improve Balance Yes: FT EO on unstable surface 30 without LOB to dec fall risk Decrease Subjective C/O Pain Yes: Improve pain at worst to 8/10 to improve overall QOL Patient to be Ind w/ HEP Yes Qa Lead Goals Number of Weeks 6 Increase Range of Motion Yes: Improve R ankle AROM to WNL and freat toe ext/flex to at least 20 Increase Strength Yes: Improve R ankle MMT to at least 4+/5 to assist with functional activities Improve Gait Pattern without Assistive Yes: FWB in tennis shoe with Device proper gait mechanics to decrease fall risk Improve Ability to Climb Stairs Yes: negotiate 1 flight with 1 HR with reciprocal pattern Improve Balance Yes: Tandem stance on stable surface 30 without LOB to dec fall risk Decrease Edema Yes Decrease Subjective C/O Pain Yes: Improve pain at worst to 6/10 to improve overall QOL Improve Self Care/Self Management Yes: Improve LEFS score to at least 75/80 Patient to be Ind w/ Advanced HEP Yes Outpatient Therapy Plan of Care Treatment Plan May Include Therapeutic Exercise Including Home Yes Exercise Program Manual Therapy Techniques Yes Neuromuscular Re-education Yes Therapeutic Activities to Return to Yes Previous Functional/Work Level Gait Training Yes ADL/Self Care Education Yes Dry Needling Yes Thermal Modalities Yes Electrical Stimulation Yes Ultrasound/Phonophoresis Yes Iontophoresis Yes Orthotics/Bracing/Splinting Yes Vasopneumatic Compression Pump Yes Massage Yes Manual Lymphatic Drainage Yes Wound Care Yes Eval/Re-Eval Yes Frequency Times per week 2-3 Duration Number of Weeks 4-6 Addendums This patient is a candidate for social No or vocational rehab? Patient/Guardian verbally acknowledges Yes understanding of treatment program and consents to further treatment? Patient/Guardian verbally acknowledges Yes understanding of diagnosis, prognosis and goals for treatment? Eval Complexity PT Charges 95185 - Low Complexity Shoulder/Elbow Eval Shoulder Objective Measurements Elbow Objective Measurements PHYSICIAN CERTIFICATION: I certify the specified therapy services for Yudy Lopezlavinia Freedman are required, authorized, and reviewed every 30 days.
== END 2022-11-30 09:05 | disposition home or self-care (01) ==
LOC: PT 09:00
PROVIDERS: PCP Internal Medicine; Visit Provider Podiatrist
DX: M79.671 Pain in right foot (principal); Z98.890 Other specified postprocedural states; G89.18 Other acute postprocedural pain
CPT/HCPCS: 97010; 97014; 97016; 97110; 97112; 97140; 97163; 97530; G0283

== ENCOUNTER → 2022-12-21 14:20 | Outpatient (CLI) | payer OTHER, SELFPAY | PROVIDERS: PCP Internal Medicine; Visit Provider Internal Medicine | DX: E03.9 Hypothyroidism, unspecified (principal) | CPT/HCPCS: 84443 ==

== ENCOUNTER → 2023-02-16 14:21 | Outpatient (CLI) | payer OTHER, SELFPAY ==
--- NOTE | 2023-02-16 14:24 | XR_ITS ---
FINAL REPORT CLINICAL HISTORY: LT THUMB PAIN FINDINGS: Left thumb Three views were obtained. There is no acute fracture or dislocation. The joint spaces appear normal. Orthopedic screws are seen in the 3rd metacarpal. IMPRESSION: No acute process. Reviewed, Interpreted and Dictated by Mauro Perry MD Transcribed by Yulia Casey Authenticated and . [facility]
--- NOTE | 2023-02-16 14:24 | XR_ITS ---
FINAL REPORT CLINICAL HISTORY: RT ELBOW PAIN FINDINGS: Right elbow Three views were obtained. There is no acute fracture or dislocation. The joint spaces appear normal. No joint effusion is identified. No soft tissue abnormality is identified. IMPRESSION: No acute process. Reviewed, Interpreted and Dictated by Mauro Perry MD Transcribed by Yulia Casey Authenticated and . [facility]
== END ==
LOC: RAD 14:22
PROVIDERS: PCP Internal Medicine; Visit Provider Internal Medicine
DX: M25.521 Pain in right elbow (principal); M79.645 Pain in left finger(s)
CPT/HCPCS: 73080; 73140

== ENCOUNTER 2023-03-29 08:30 | Outpatient (CLI) | payer BC, SELFPAY ==
--- NOTE | 2023-03-29 08:35 | XR_ITS ---
FINAL REPORT CLINICAL HISTORY: Pain/swelling in right foot. Sx August 2022 to remove bunion. FINDINGS: RIGHT FOOT Three views demonstrate no acute fracture or dislocation. There are postoperative changes in the medial midfoot. Mild degenerative changes are seen. There is a small plantar calcaneal spur No acute soft tissue abnormality is seen. IMPRESSION: Postoperative and degenerative changes with no acute bony abnormality. Reviewed, Interpreted and Dictated by Kiel Hogan III, MD Transcribed by Gladis Rubio Authenticated and [facility]
== END 2023-03-29 23:59 ==
PROVIDERS: PCP Internal Medicine; Visit Provider Podiatrist
DX: M79.671 Pain in right foot (principal)
CPT/HCPCS: 73630

== ENCOUNTER 2023-04-14 07:09 | Outpatient (CLI) | payer BC, SELFPAY ==
--- NOTE | 2023-04-14 07:09 | CT_ITS ---
FINAL REPORT TECHNIQUE: Thin section axial CT images with coronal and sagittal reformats were performed. This study was performed with techniques to keep radiation doses as low as reasonably achievable (ALARA). Individualized dose reduction techniques using automated exposure control or adjustment of mA and/or kV according to the patient''s size were employed. CLINICAL HISTORY: hx of surgery, right foot Pain since FINDINGS: CT RIGHT FOOT WITHOUT CONTRAST The bones are osteopenic. There are hypertrophic changes of the posterior subtalar joint. There is streak artifact arising from hardware. There is a sideplate and screws securing the proximal first metatarsal. There is some fragmentation of the medial cuneiform. There is a transverse screw extending through the fragmentation into the middle cuneiform. IMPRESSION: Internal fixation hardware at the first tarsometatarsal joint and intertarsal joint with fragmentation of the distal cuneiform. Reviewed, Interpreted and Dictated by Mauro Perry MD Transcribed by Gladis Rubio Authenticated and [facility]
== END 2023-04-14 23:59 ==
LOC: RAD 07:09
PROVIDERS: PCP Internal Medicine; Visit Provider Podiatrist
DX: M20.41 Other hammer toe(s) (acquired), right foot (principal); M96.0 Pseudarthrosis after fusion or arthrodesis; T84.84XA Pain due to internal orthopedic prosthetic devices, implants and grafts, initial encounter
CPT/HCPCS: 73700

== ENCOUNTER 2023-06-09 11:53 | Emergency (ER) | payer BC, SELFPAY ==
[2023-06-09 11:55] VITALS: BP 208/102; PULSE 95; RESP 16; TEMP 36.6; O2SAT 100; BMI 25.7
--- NOTE | 2023-06-09 12:03 | PC.NURSE ---
PT PLACED IN GOWN FOR ER MD TO EXAM VAGINA AREA
[2023-06-09 12:05] VITALS: BP 167/109; PULSE 87; O2SAT 97
--- NOTE | 2023-06-09 12:17 | PC.NURSE ---
CALLED OB OFFICE SCHEDULED PT TO SEE TOMORROW AT 13:30 ON 06/10/23 AND WAITING FOR TO CALL BACK AND SPEAK WITH REGARDING PT
[2023-06-09 12:18] VITALS: BP 156/93; PULSE 78; O2SAT 96
--- NOTE | 2023-06-09 12:25 | HMH.EDGENADL ---
Discharge Plan Disposition Patient Disposition: Home, Self-Care Condition: Good Prescriptions Prescriptions: New polyethylene glycol 3350 [Miralax] 17 gram/dose powder 17 g PO DAILY Qty: 510 0RF No Action buprenorphine-naloxone [Suboxone] 8-2 mg film 1.4 film SUBLINGUAL DAILY Patient Comments: DISSOLVE ONE FILM AND A HALF UNDER THE TONGUE EVERY DAY carvedilol [Coreg] 12.5 mg tablet 12.5 mg PO BID Qty: 60 5RF Rx Instructions: must administer with a meal/food lidocaine-prilocaine 2.5-2.5 % cream topical levothyroxine 200 mcg tablet PO Patient Comments: TAKE 1 TABLET BY MOUTH EVERY OTHER DAY FOR 90 DAYS meloxicam 7.5 mg tablet PO Patient Comments: TAKE 1 TABLET BY MOUTH TWICE DAILY NEEDED FOR ARTHRITIS valsartan-hydrochlorothiazide 160-12.5 mg tablet PO Patient Comments: TAKE 1 TABLET BY MOUTH TWICE DAILY gabapentin 300 mg capsule 300 mg PO HS PRN (Reason: nerve pain) 14 Days Qty: 14 0RF valsartan-hydrochlorothiazide 320-25 mg tablet 1 tab PO DAILY Qty: 30 5RF pantoprazole 40 mg tablet,delayed release (DR/EC) 40 mg PO DAILY Referrals Follow up/Referrals: Yvonne Dorantes DO [Staff Physician] - See instructions Tanner Sutherland MD [Primary Care Provider] - See instructions Activity Restrictions/Add. Instructions Additional Instructions/Restrictions: You were evaluated in the emergency department today. Please follow-up closely with [facility] in addition to your primary care provider. We have scheduled you an appointment with Dr. Dorantes for tomorrow at 1:30 PM. Avoid heavy lifting or straining. I have provided you with a prescription for MiraLAX should you need it to help with soft bowel movements to avoid straining. Return to the emergency department for new or worsening symptoms. Clinical Impressions Clinical Impression: Prolapse of female pelvic organs Stand Alone Forms Stand Alone Forms: Work/School Release Instructions Patient Instructions: DI for Urinary Tract Infection (UTI), DI for Urinary Tract Infection in Children Discharge ED Provider: Faye Keller General Adult HPI General Chief complaint: Urogenital-Female Stated complaint: complaining of something coming out of groin Time Seen by Provider: 06/09/23 11:56 Mode of Arrival: Ambulatory Source of Information: Patient Limitations: No Limitations Description of Symptoms (Recalled from ER Triage Doc. by RN): c/o something in her vagina, states that it feels like a tampon, she was wiping when she felt it, denies pain, discharge or bleeding. History of Present Illness HPI narrative: This patient is a 58-year-old female with history of chronic constipation, tobacco abuse, hypothyroidism, hypertension, and hemorrhoids presenting with concern for sensation of a foreign body in her vagina. Patient reports that this morning when she went to pee and was wiping, she felt something protruding from her vagina. She is not sure what it is. She states she looked with a mirror and noted that looked like a ball. She still been able to urinate and she did have a bowel movement this morning prior to onset of symptoms. She denies any significant associated pain. No other concerns noted at this time. No history of pelvic issues, recent intercourse, recent vaginal penetration with any sort of foreign body, pelvic surgeries, or other concerns. She notes she does still have all of her reproductive organs. She has had a history of 3 pregnancies with 2 vaginal deliveries. Related Data Home Medications Medication Instructions Recorded Confirmed buprenorphine 8 mg-naloxone 2 mg 1.4 film sublingual DAILY . 03/03/20 03/29/23 sublingual film (Suboxone) pantoprazole 40 mg tablet,delayed 40 mg PO DAILY GERD 03/11/22 03/29/23 release levothyroxine 200 mcg tablet mcg PO 04/18/23 04/18/23 lidocaine-prilocaine 2.5 %-2.5 % topical 04/18/23 04/18/23 topical cream meloxicam 7.5 mg tablet mg PO 04/18/23 04/18/23 valsartan 160 tab PO 04/18/23 04/18/23 mg-hydrochlorothiazide 12.5 mg tablet Previous Rx's Medication Instructions Recorded gabapentin 300 mg capsule 300 mg PO HS PRN nerve pain 2 09/09/22 weeks #14 caps carvedilol 12.5 mg tablet (Coreg) 12.5 mg PO BID #60 tabs 12/22/22 valsartan 320 1 tab PO DAILY #30 tabs 04/13/23 mg-hydrochlorothiazide 25 mg tablet polyethylene glycol 3350 17 17 g PO DAILY #510 grams 06/09/23 gram/dose oral powder (Miralax) Allergies Allergy/AdvReac Type Severity Reaction Status Date / Time gabapentin [GABAPENTIN] Allergy Unknown NA-NAUSEA/V Verified 04/18/23 09:20 OMITING naproxen [NAPROXEN] Allergy Unknown NA-NAUSEA/V Verified 04/18/23 09:20 OMITING PFSH PFSH Disclaimer: The information contained in this section may have been updated after the patient was seen, as this information can be updated by other users. Medical History History of COVID-19 Migraine Hemorrhoid Edema History of anemia History of gastroesophageal reflux (GERD) History of hypothyroidism History of hypertension Renal artery stenosis Foot pain, bilateral Surgical History History of surgery History of surgery Hx of tubal ligation Hx of section Family History Other Cancer Heart attack Social History Smoking Status: Current every day smoker tobacco type: cigarettes packs per day: 1 alcohol intake: never substance use type: opiates current occupational status: employed Travel in the last 8 weeks: None housing: house caffeine: Yes ROS Obtained: Yes All systems reviewed & no additional complaints except as documented Physical Exam General General appearance: alert and in no apparent distress Head Head exam: atraumatic and normocephalic Eye Eye exam: Present normal appearance, PERRL and EOMI ENT ENT exam: Present normal exam, normal oropharynx, mucous membranes moist and normal external ear exam Neck Neck exam: Present normal inspection, full ROM and trachea midline; Absent tenderness Chest Chest inspection: Present normal inspection and symmetric chest wall rise; Absent tenderness Respiratory Respiratory exam: Present normal lung sounds bilaterally; Absent respiratory distress, wheezes, stridor or accessory muscle use Cardiovascular Cardiovascular exam: Present regular rate and normal rhythm Abdominal Exam Abdominal exam: Present soft; Absent distention, tenderness or guarding Expanded Exam Comment: Grade 1-2 bladder prolapse with no appreciable bleeding or drainage. No vaginal foreign bodies. Extremities Exam Extremities exam: Present normal inspection, full ROM and normal capillary refill; Absent tenderness or edema Back Exam Back exam: Present normal inspection and full ROM; Absent tenderness Neurological Exam Neurological exam: Present alert, oriented X3, CN II-XII intact and normal gait; Absent motor sensory deficit Psychiatric Psychiatric exam: Present normal affect and normal mood Skin Skin exam: Present warm and dry Medical Decision Making Medical Records Medical records reviewed: Yes I reviewed the patient's medical records. Petros Inquiry Pt receiving controlled substance: No Vital Signs: 06/09/23 11:55 06/09/23 12:05 06/09/23 12:18 Temperature 97.9 F Temperature Source Oral Pulse Rate 87 78 Pulse Rate [Left Radial] 95 H Respiratory Rate 16 Blood Pressure 167/109 H 156/93 H Blood Pressure [Right Arm] 208/102 H Blood Pressure Mean 115 Blood Pressure Mean [Right Arm] 137 02 Sat by Pulse Oximetry 100 97 96 Oxygen Delivery Method Room Air 06/09/23 12:36 Temperature 98.0 F Temperature Source Pulse Rate 89 Pulse Rate [Left Radial] Respiratory Rate 16 Blood Pressure 166/109 H Blood Pressure [Right Arm] Blood Pressure Mean Blood Pressure Mean [Right Arm] 02 Sat by Pulse Oximetry Oxygen Delivery Method Lab Data Lab results reviewed: Yes I reviewed the patient's lab results. Medical Decision Narrative: In summary, this patient is a 58-year-old female presenting to the Emergency Department for evaluation of foreign body sensation and protrusion of an object from her vagina. Differential diagnoses considered include but are not limited to bladder prolapse, uterine prolapse, foreign body. Ruling out the most morbid conditions drove assessment. On exam, the patient is resting comfortably with benign abdominal exam. She does have grade 1-2 bladder prolapse with no other concerns based on clinical exam. I called and scheduled an appointment with patient in [facility] clinic, as I feel she would benefit from close a patient follow-up. At this time, since she is urinating and is not having any significant pain, I feel she is appropriate for outpatient follow-up. I advised that she avoid heavy lifting and provided her with prescription for MiraLAX to help ensure that she is having soft bowel movements and avoiding straining. I gave her strict return precautions and she was discharged after all questions were answered. Critical Care Critical Care Time Critical Care Time: No
[2023-06-09 12:36] VITALS: BP 166/109; PULSE 89; RESP 16; TEMP 36.7
== END 2023-06-09 12:37 | disposition home or self-care (01) ==
PROVIDERS: Emergency Provider Emergency Medicine; PCP Internal Medicine
DX: N81.9 Female genital prolapse, unspecified (principal); F17.210 Nicotine dependence, cigarettes, uncomplicated; K21.9 Gastro-esophageal reflux disease without esophagitis; I10 Essential (primary) hypertension; E03.9 Hypothyroidism, unspecified
CPT/HCPCS: 99283

== ENCOUNTER 2023-06-10 14:09 | Outpatient (CLI) | payer BC, SELFPAY ==
[2023-06-10 15:02] LABS: Anion Gap 11.9 mEq/L (5-15); Blood Urea Nitrogen 22 mg/dl (7-17); Calcium 9.2 mg/dl (8.4-10.2); Carbon Dioxide 27 mmol/L (22.0-30.0); Chloride 106 mmol/L (98-107); Estimated Glomerular Filt Rate 57 ml/min (>60); GFR (African American) 69 ML/MIN (>60); Glucose 97 mg/dl (74-100); Potassium 3.9 mmoL/L (3.5-5.1); Sodium 141 mmol/L (136-145)
== END 2023-06-10 23:59 ==
LOC: LAB.DROPOF 14:09
PROVIDERS: PCP Internal Medicine; Visit Provider Internal Medicine
DX: I10 Essential (primary) hypertension (principal)
CPT/HCPCS: 80048

== ENCOUNTER 2023-07-28 11:25 | Emergency (ER) | payer BC, SELFPAY ==
[2023-07-28 11:35] VITALS: BP 172/90; PULSE 78; RESP 19; TEMP 36.9; O2SAT 97; BMI 26.1
--- NOTE | 2023-07-28 11:43 | ED_ITS ---
Discharge Plan Disposition Patient Disposition: Home, Self-Care Condition: Good Prescriptions Prescriptions: New amoxicillin 500 mg tablet 500 mg PO TID 10 Days Qty: 30 0RF methylprednisolone 4 mg Tablets,Dose Pack 4 mg PO DIRECTED 6 Days Qty: 21 0RF Rx Instructions: Take 1 pack as directed for 6 days ondansetron 4 mg Tablet,Disintegrating 4 mg PO Q8H PRN (Reason: Nausea) Qty: 12 0RF No Action tolterodine 4 mg capsule,extended release 24hr 4 mg PO DAILY Patient Comments: TAKE 1 CAPSULE BY MOUTH ONCE DAILY valsartan-hydrochlorothiazide 320-25 mg tablet 1 tab PO DAILY Patient Comments: TAKE 1 TABLET BY MOUTH ONCE DAILY buprenorphine-naloxone 8-2 mg film 1.25 film sublingual DAILY Patient Comments: PLACE 1 & / (ONE & ONE-FOURTH) STRIPS UNDER THE TONGUE ONCE DAILY Referrals Follow up/Referrals: Tanner Sutherland MD [Primary Care Provider] - See instructions Activity Restrictions/Add. Instructions Additional Instructions/Restrictions: Drink plenty of fluids. Take tylenol or ibuprofen for pain or fever. Take the medications as directed. Follow up with your regular doctor. GO TO THE ER FOR ANY WORSENING SYMPTOMS Clinical Impressions Clinical Impression: Otitis media, Viral syndrome Stand Alone Forms Stand Alone Forms: Work/School Release Instructions Patient Instructions: Middle Ear Infection, DI for Viral Syndrome Discharge ED Provider: Tejinder Chu [facility] General Stated complaint: body aches, headache, vomitting Mode of Arrival: Ambulatory Source of Information: Patient Limitations: No Limitations Time Seen by Provider: 07/28/23 11:43 Description of Symptoms (Recalled from Triage Doc. by RN): PATIENT C/O VOMITING, BODY ACHES, AND CHILLS SINCE YESTERDAY HEENT Symptoms (Recalled from RN notes): No Resp Symptoms (Recalled from RN notes): No Skin Symptoms (Recalled from RN notes): No MS Symptoms (Recalled from RN notes): No Functional Status (Recalled from RN notes): WNL Related Data Home Medications Medication Instructions Recorded Confirmed buprenorphine 8 mg-naloxone 2 mg 1.25 film sublingual DAILY 07/28/23 07/28/23 sublingual film tolterodine 4 mg capsule,extended 4 mg PO DAILY 07/28/23 07/28/23 release 24 hr valsartan 320 1 tab PO DAILY 07/28/23 07/28/23 mg-hydrochlorothiazide 25 mg tablet Previous Rx's Medication Instructions Recorded amoxicillin 500 mg tablet 500 mg PO TID 10 days #30 tabs 07/28/23 methylprednisolone 4 mg tablets in 4 mg PO DIRECTED 6 days #21 tabs 07/28/23 a dose pack ondansetron 4 mg disintegrating 4 mg PO Q8H PRN Nausea #12 tabs 07/28/23 tablet Allergies Allergy/AdvReac Type Severity Reaction Status Date / Time gabapentin [GABAPENTIN] Allergy Unknown NA-NAUSEA/V Verified 06/10/23 13:35 OMITING naproxen [NAPROXEN] Allergy Unknown NA-NAUSEA/V Verified 06/10/23 13:35 OMITING Worker's Comp Is this a Worker's Comp case?: No [facility] Disclaimer: The information contained in this section may have been updated after the patient was seen, as this information can be updated by other users. Medical History History of COVID-19 Migraine Hemorrhoid Edema History of anemia History of gastroesophageal reflux (GERD) History of hypothyroidism History of hypertension Renal artery stenosis Foot pain, bilateral Surgical History History of surgery LEFT HAND SX History of surgery LEFT SHOULDER SX Hx of tubal ligation Hx of section Family History Other Cancer Heart attack Social History Smoking Status: Current every day smoker tobacco type: cigarettes packs per day: 1 alcohol intake: never substance use type: opiates current occupational status: employed Travel in the last 8 weeks: None housing: house caffeine: Yes ROS Obtained: Yes All systems reviewed & no additional complaints except as documented Constitutional Constitutional: Denies chills, Denies fever(s) and Reports poor appetite ENT Ears, Nose, Mouth, and Throat: Denies dizziness and Denies sore throat Cardiovascular Cardiovascular: Denies dyspnea Respiratory Respiratory: Denies chest congestion, Denies cough and Denies dyspnea Gastrointestinal Gastrointestingal: Reports as per HPI, diarrhea, nausea and vomiting; Denies abdominal pain or cramping Genitourinary Female Genitourinary: Denies difficulty voiding, Denies dysuria, Denies hematuria, Denies urinary frequency, Denies urinary incontinence, Denies urinary hesitancy and Denies urinary urgency Musculoskeletal Musculoskeletal: Denies arthralgias Integumentary/Breasts Skin/Breast: Denies rash Neurologic Neurologic: Denies dizziness Physical Exam General General appearance: alert and in no apparent distress Head Head exam: atraumatic and normocephalic Eye Eye exam: Present normal appearance, PERRL and EOMI ENT ENT exam: Present normal exam, normal oropharynx, mucous membranes moist, TM's normal bilaterally and normal external ear exam Neck Neck exam: Present normal inspection, full ROM and trachea midline; Absent tenderness, meningismus or lymphadenopathy Chest Chest inspection: Present normal inspection and symmetric chest wall rise; Absent tenderness, rash or abscess Respiratory Respiratory exam: Present normal lung sounds bilaterally; Absent respiratory distress, wheezes or stridor Cardiovascular Cardiovascular exam: Present regular rate and normal rhythm; Absent irregular rhythm, systolic murmur, diastolic murmur or JVD Abdominal Exam Abdominal exam: Present soft and hyperactive bowel sounds; Absent distention, tenderness, guarding, rebound, rigidity, psoas sign, obturator sign, heel tap sign, Spring's sign, Rovsing's sign or tenderness at McBurney's Point Extremities Exam Extremities exam: Present normal inspection and full ROM; Absent tenderness Back Exam Back exam: Present normal inspection and full ROM; Absent tenderness, CVA tenderness (R) or CVA tenderness (L) Neurological Exam Neurological exam: Present alert, oriented X3 and CN II-XII intact Psychiatric Psychiatric exam: Present normal affect and normal mood Skin Skin exam: Present warm, dry, intact and normal color Lymphatic Lymphatic Findings: no adenopathy Medical Decision Making Medical Records Medical records reviewed: No I reviewed the patient's medical records. Petros Inquiry Pt receiving controlled substance: No Vital Signs: 07/28/23 11:35 Temperature 98.5 F Temperature Source Oral Pulse Rate [Right Brachial] 78 Respiratory Rate 19 Blood Pressure [Right Arm] 172/90 H Blood Pressure Mean [Right Arm] 117 Blood Pressure Source [Right Arm] Automatic Cuff Blood Pressure Position [Right Arm] Sitting 02 Sat by Pulse Oximetry 97 Oxygen Delivery Method Room Air
[2023-07-28 12:34] VITALS: BP 172/90; PULSE 78; RESP 19; TEMP 36.9; O2SAT 97
[2023-07-28 12:53] LABS: Coronavirus 19, PCR Not Detected (NotDetected); Influenza A, PCR Not Detected (NotDetected); Influenza B, PCR Not Detected (NotDetected)
== END 2023-07-28 12:38 | disposition home or self-care (01) ==
PROVIDERS: Emergency Provider Nurse Practitioner Family; PCP Internal Medicine
DX: R51.9 Headache, unspecified (principal); R11.2 Nausea with vomiting, unspecified; M79.18 Myalgia, other site; B34.9 Viral infection, unspecified
CPT/HCPCS: 87636; 99212; 99214; G0463

== ENCOUNTER 2023-11-12 12:52 | Emergency (ER) | payer BC, SELFPAY ==
[2023-11-12 13:30] VITALS: BP 159/96; PULSE 69; RESP 16; TEMP 36.8; O2SAT 98; BMI 24.9
--- NOTE | 2023-11-12 13:38 | EXP.UTC ---
Discharge Plan Disposition Patient Disposition: Home, Self-Care Condition: Good Prescriptions Prescriptions: New azithromycin [Zithromax] 250 mg tablet 250 mg PO UD DOSE PK Qty: 6 0RF Rx Instructions: Take two (2) tablets today, then one (1) tablet days #2 thru #5 benzonatate 100 mg capsule 100 mg PO TIDP PRN (Reason: Cough) Qty: 30 0RF methylprednisolone 4 mg Tablets,Dose Pack 4 mg PO DIRECTED 6 Days Qty: 21 0RF Rx Instructions: Take 1 pack as directed for 6 days No Action tolterodine 4 mg capsule,extended release 24hr 4 mg PO DAILY Patient Comments: TAKE 1 CAPSULE BY MOUTH ONCE DAILY valsartan-hydrochlorothiazide 320-25 mg tablet 1 tab PO DAILY Patient Comments: TAKE 1 TABLET BY MOUTH ONCE DAILY buprenorphine-naloxone 8-2 mg film 1.25 film sublingual DAILY Patient Comments: PLACE 1 & 1/4 (ONE & ONE-FOURTH) STRIPS UNDER THE TONGUE ONCE DAILY amoxicillin 500 mg tablet 500 mg PO TID 10 Days Qty: 30 0RF methylprednisolone 4 mg Tablets,Dose Pack 4 mg PO DIRECTED 6 Days Qty: 21 0RF Rx Instructions: Take 1 pack as directed for 6 days ondansetron 4 mg Tablet,Disintegrating 4 mg PO Q8H PRN (Reason: Nausea) Qty: 12 0RF Referrals Follow up/Referrals: Tanner Sutherland MD [Primary Care Provider] - See instructions Activity Restrictions/Add. Instructions Additional Instructions/Restrictions: Drink plenty of fluids. Take tylenol or ibuprofen for pain or fever. Take the medications as directed. Follow up with your regular doctor. GO TO THE ER FOR ANY WORSENING SYMPTOMS Clinical Impressions Clinical Impression: Sinusitis, Acute viral syndrome Stand Alone Forms Stand Alone Forms: Work/School Release Instructions Patient Instructions: Sinusitis, DI for Sinusitis Print Language Print Language: Afghan Discharge ED Provider: Tejinder Chu [facility] [place] General Stated complaint: cough, body aches, no taste/smell, Mode of Arrival: Ambulatory Source of Information: Patient Limitations: No Limitations Time Seen by Provider: 11/12/23 13:38 Description of Symptoms (Recalled from Triage Doc. by RN): Reports no taste, smell and coughing. HEENT Symptoms (Recalled from RN notes): Yes Resp Symptoms (Recalled from RN notes): No Skin Symptoms (Recalled from RN notes): No MS Symptoms (Recalled from RN notes): No Functional Status (Recalled from RN notes): wnl Related Data Home Medications ?Medication ?Instructions ?Recorded ?Confirmed buprenorphine 8 mg-naloxone 2 mg 1.25 film sublingual DAILY 07/28/23 07/28/23 sublingual film tolterodine 4 mg capsule,extended 4 mg PO DAILY 07/28/23 07/28/23 release 24 hr valsartan 320 1 tab PO DAILY 07/28/23 07/28/23 mg-hydrochlorothiazide 25 mg tablet Previous Rx's ?Medication ?Instructions ?Recorded amoxicillin 500 mg tablet 500 mg PO TID 10 days #30 tabs 07/28/23 methylprednisolone 4 mg tablets in 4 mg PO DIRECTED 6 days #21 tabs 07/28/23 a dose pack ondansetron 4 mg disintegrating 4 mg PO Q8H PRN Nausea #12 tabs 07/28/23 tablet azithromycin 250 mg tablet 250 mg PO UD DOSE PK #6 tabs 11/12/23 (Zithromax) benzonatate 100 mg capsule 100 mg PO TIDP PRN Cough #30 caps 11/12/23 methylprednisolone 4 mg tablets in 4 mg PO DIRECTED 6 days #21 tabs 11/12/23 a dose pack Allergies Allergy/AdvReac Type Severity Reaction Status Date / Time gabapentin [GABAPENTIN] Allergy Unknown NA-NAUSEA/V Verified 06/10/23 13:35 OMITING naproxen [NAPROXEN] Allergy Unknown NA-NAUSEA/V Verified 06/10/23 13:35 OMITING Worker's Comp Is this a Worker's Comp case?: No [facility] Disclaimer: The information contained in this section may have been updated after the patient was seen, as this information can be updated by other users. Medical History History of COVID-19 Migraine Hemorrhoid Edema History of anemia History of gastroesophageal reflux (GERD) History of hypothyroidism History of hypertension Renal artery stenosis Foot pain, bilateral Surgical History History of surgery LEFT HAND SX History of surgery LEFT SHOULDER SX Hx of tubal ligation Hx of section Family History Other Cancer Heart attack Social History Smoking Status: Current every day smoker tobacco type: cigarettes packs per day: 1 alcohol intake: never substance use type: opiates current occupational status: employed Travel in the last 8 weeks: None housing: house caffeine: Yes ROS Obtained: Yes All systems reviewed & no additional complaints except as documented Constitutional Constitutional: Reports poor appetite Eyes Eyes: Reports system reviewed and no additional complaints, except as documented ENT Ears, Nose, Mouth, and Throat: Reports as per HPI Cardiovascular Cardiovascular: Reports system reviewed and no additional complaints, except as documented and Denies chest pain Respiratory Respiratory: Denies shortness of breath, Denies chest congestion, Reports cough, Denies stridor and Denies wheezing Gastrointestinal Gastrointestingal: Reports system reviewed and no additional complaints, except as documented; Denies abdominal pain, diarrhea or vomiting Musculoskeletal Musculoskeletal: Reports system reviewed and no additional complaints, except as documented and Denies arthralgias Integumentary/Breasts Skin/Breast: Reports system reviewed and no additional complaints, except as documented and Denies rash Neurologic Neurologic: Denies paresthesias Allergic/Immunologic Allergic/Immunologic: Denies wheezing Physical Exam General General appearance: alert and in no apparent distress Eye Eye exam: Present normal appearance, PERRL and EOMI ENT ENT exam: Present mucous membranes moist and normal external ear exam Expanded ENT Exam External ear exam: Present normal external inspection TM/Canal exam: Bilateral TM: erythema and bulging Nose exam: Absent sinus tenderness Nasal speculum exam: Bilateral: normal Mouth exam: Present normal external inspection; Absent drooling Teeth exam: Present normal inspection Throat exam: Present tonsillar erythema and tonsillomegaly Neck Neck exam: Present normal inspection, full ROM and trachea midline; Absent tenderness, lymphadenopathy or thyromegaly Chest Chest inspection: Present normal inspection and symmetric chest wall rise; Absent tenderness or rash Respiratory Respiratory exam: Present normal lung sounds bilaterally; Absent respiratory distress, wheezes, stridor or accessory muscle use Cardiovascular Cardiovascular exam: Present regular rate, normal rhythm and normal heart sounds Abdominal Exam Abdominal exam: Present soft; Absent distention, tenderness, guarding, rebound or rigidity Extremities Exam Extremities exam: Present normal inspection, full ROM and normal capillary refill; Absent tenderness or calf tenderness Back Exam Back exam: Present normal inspection and full ROM; Absent tenderness Neurological Exam Neurological exam: Present alert and oriented X3 Psychiatric Psychiatric exam: Present normal affect and normal mood Skin Skin exam: Present warm, dry, intact and normal color Lymphatic Lymphatic Findings: no adenopathy Medical Decision Making Medical Records Medical records reviewed: No I reviewed the patient's medical records. Screening: Per USPSTF and CDC recommendations, given the prevalence of disease in our region, it is our hospital?s policy to screen for HIV and viral Hepatitis for all patients aged 18 and over and those with ongoing risk factors. Petros Inquiry Pt receiving controlled substance: No Vital Signs: 11/12/23 13:30 Temperature 98.2 F Temperature Source Oral Pulse Rate [Radial] 69 Respiratory Rate 16 Blood Pressure [Right Arm] 159/96 H Blood Pressure Mean [Right Arm] 117 Blood Pressure Source [Right Arm] Automatic Cuff Blood Pressure Position [Right Arm] Sitting 02 Sat by Pulse Oximetry 98 Oxygen Delivery Method Room Air Orders (Tests/Meds): ORDERS Category Date Time Status Covid-19 Nasal PCR (H) Routine Lab 11/12/23 13:26 Received
[2023-11-12 14:29] VITALS: BP 159/96; PULSE 69; RESP 16; TEMP 36.8; O2SAT 98
== END 2023-11-12 14:29 | disposition home or self-care (01) ==
PROVIDERS: Emergency Provider Nurse Practitioner Family; PCP Internal Medicine
DX: J01.90 Acute sinusitis, unspecified (principal); R05.9 Cough, unspecified; R43.9 Unspecified disturbances of smell and taste; B34.9 Viral infection, unspecified; I10 Essential (primary) hypertension; F17.210 Nicotine dependence, cigarettes, uncomplicated
CPT/HCPCS: 87635; 99212; 99214; G0463

== ENCOUNTER 2023-12-21 16:42 | Outpatient (CLI) | payer BC, SELFPAY ==
--- NOTE | 2023-12-21 16:46 | XR_ITS ---
PROCEDURE INFORMATION: Exam: XR Right Shoulder Exam date and time: 12/21/2023 4:48 PM Age: 58 years old Clinical indication: Pain; Shoulder; Right; Additional info: Right shoulder pain TECHNIQUE: Imaging protocol: Radiologic exam of the right shoulder. Views: 2 or more views. COMPARISON: No relevant prior studies available. FINDINGS: Bones/joints: Normal. Soft tissues: Normal. IMPRESSION: No acute findings.
--- NOTE | 2023-12-21 16:46 | XR_ITS ---
PROCEDURE INFORMATION: Exam: XR Right Hand Exam date and time: 12/21/2023 4:48 PM Age: 58 years old Clinical indication: Pain; Hand; Right; Additional info: Trigger thumb TECHNIQUE: Imaging protocol: Radiologic exam of the right hand. Views: 3 or more views. COMPARISON: No relevant prior studies available. FINDINGS: Bones/joints: Normal. Soft tissues: Normal. IMPRESSION: No acute findings.
--- NOTE | 2023-12-21 16:46 | XR_ITS ---
PROCEDURE INFORMATION: Exam: XR Left Elbow Exam date and time: 12/21/2023 4:48 PM Age: 58 years old Clinical indication: Pain; Elbow; Left; Additional info: Unable to straighten out left elbow TECHNIQUE: Imaging protocol: Radiologic exam of the left elbow. Views: 1 or 2 views. COMPARISON: No relevant prior studies available. FINDINGS: Bones/joints: Elbow joint effusion. The linear focus of calcification in the expected region of the radial collateral ligament. No definitive evidence of acute osseous injury. Soft tissues: Normal. IMPRESSION: 1. Elbow joint effusion. 2. Findings suggestive of lateral epicondylitis. Consider follow-up with magnetic resonance imaging. 3. No definitive evidence of acute osseous injury.
== END 2023-12-21 23:59 | disposition home or self-care (01) ==
LOC: RAD 16:42
PROVIDERS: PCP Internal Medicine; Visit Provider Internal Medicine
DX: M25.522 Pain in left elbow (principal); M75.101 Unspecified rotator cuff tear or rupture of right shoulder, not specified as traumatic; M65.311 Trigger thumb, right thumb
CPT/HCPCS: 73030; 73070; 73130

== ENCOUNTER 2024-02-17 10:52 | Outpatient (RCR) | payer BC, SELFPAY ==
--- NOTE | 2024-02-17 12:00 | HMH.PTOPEV ---
PT Outpatient Evaluation Rehab PT Outpatient Evaluation Start: 02/17/24 10:59 Freq: Status: Active Protocol: Document 02/17/24 10:59 YUNG (Rec: 02/17/24 11:59 YUNG [id number]) E-signed By Faye Tucker, PT Outpatient Therapy Subjective History Subjective History Pt is 58 y/o female who reports onset of R anterior shoulder pain ~3-4 months ago. Pt denies trauma or injury. Pt reports she did start a new position at work that involves repetitive lifting 50 -60lb rims. Pt states she works 8 hr shifts often 6-7 days per week. Pt denies changes of symptoms overtime. Pt had a R shoulder radiograph on 12/11/23 without significant findings. Pt reports symptoms are aggravated by repetitive lifting, reaching behind her back and sleeping on the R shoulder. 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 Pt denies neck pain but does report intermittent numbness of the R arm that happens ~1x/day and lasts 15-20 minutes. Pt also states she was diagnosed with R trigger thumb and is scheduled to have a MRI on 02/26. Medical History: Migraine, Hemorrhoid, Edema, History of anemia, History of gastroesophageal reflux (GERD) , History of hypothyroidism, History of hypertension, Renal artery stenosis, Hx L shoulder surgery 2007, Hx L hand surgery due to broken fingers New diagnosis of cancer in past 12 No months? Chief Complaint Pain,Stiff Symptom Type Ache,Dull Symptoms Relieved By OTC Meds Symptoms Aggravated By Lifting Current Functional Limitations Lifting,Housework,Dressing Symptom Description Intermittent Level of pain today (0-10) 2 Pain scale - at its best (0-10) 0 Pain scale - at its worst (0-10) 7 Cervical Eval Special Test C-Spine Foraminal Compression (Spurling) Negative Right Test C-Spine Compression Test Negative Right Shoulder/Elbow Eval Shoulder Objective Measurements Palpation Tenderness tenderness over the bicipital tendon right shoulder exam standard Shoulder Palpation Findings Tenderness Shoulder Palpation Overall Comment long head of bicep tt, AC joint, bicep muscle belly 3/4 TTP Shoulder ROM Right Shoulder Abduction Active Range of 180 Motion (degrees) Shoulder Flexion Passive Range of Motion 180 (degrees) full ROM shoulder exam standard right Shoulder MMT Lower Trapezius Strength Grade 4- Good- Middle Trapezius Strength Grade 4- Good- Rhomboids Strength Grade 4 Good Shoulder Abduction Strength Grade 4 Good Shoulder Extension Strength Grade 4 Good Shoulder Flexion Strength Grade 4 Good Shoulder Special Tests impingement sign present shoulder exam right standard Shoulder Drop Arm Test Negative Right Shoulder Cross-Over Impingement Test Positive Right Shoulder Peres-[place] Impingement Positive Right Test Shoulder Speed's Sign Test Positive Right Elbow Objective Measurements Elbow ROM Right full ROM elbow exam standard right Elbow MMT Elbow Flexion Strength Grade 4 Good Elbow Extension Strength Grade 5 Normal Supination Strength Grade 5 Normal Pronation Strength Grade 5 Normal Elbow Special Tests Elbow Flexion Test Negative Right QuickDASH Activities Please rate your ability to do the following activities in the last week by selecting the number below the appropriate response. 1. Open a tight or new jar. Severe difficulty 2. Do heavy plant operations manager (e.g., wash Severe difficulty waldrop, floors). 3. Carry a shopping bag or briefcase. Severe difficulty 4. Wash your back. Severe difficulty 5. Use a knife to cut food. Severe difficulty 6. Recreational activities in which you Severe difficulty take some force or impact through your arm, shoulder, or hand (e.g., golf, hammering, tennis, etc.). 7. During the past week, to what extent Moderately has your arm, shoulder or hand problem interfered with your normal social activities with family, friends, neighbors or groups? 8. During the past week, were you Moderately limited limited in your work or other regular daily activites as a result of your arm, shoulder or hand problem? 9. Arm, shoulder or hand pain. Severe 10. Tingling (pins and needles) in your Moderate arm, shoulder or hand. 11. During the past week, how much Moderate difficulty difficulty have you had sleeping because of the pain in your arm, shoulder or hand? Quick DASH 40 Outpatient Therapy Assessment Impairments Problems/Impairmments Palpation Tenderness,Impaired Strength,Impaired Lifting, Impaired Dressing,Impaired Household Care,Impaired Work Activities,Subjective C/O Pain ,Impaired Self Care/Self Management Prognosis Rehab Potential Good Clinical Impression Consistent with Diagnosis Yes Short Term Goals Number of Weeks 3 Improve Ability to Dress Self Yes: report ability to don jacket with pain 5/10 or less Improve Quick Dash Score Yes: Improve score to at least 35 to improve overall QOL Decrease Subjective C/O Pain Yes: Improve pain at worst to 5/10 to improve overall QOL Improve Self Care/Self Management Yes Patient to be Ind w/ HEP Yes High Tension Tester Goals Number of Weeks 6 Decreased Palpation Tenderness Yes: 0-1/4 TTP of R bicep mm & tt Increase Strength Yes: Improve RUE MMT to 4+-5/5 grossly to assist with function Restore Ability to Lift Objects to Waist Yes: 50# with proper mechanics Level to assist with occupation Improve Tolerance to Work Activities Yes: report ability to work a full shift with pain 3/10 or less Improve Quick Dash Score Yes: Improve score to at least 30 to improve overall QOL Decrease Subjective C/O Pain Yes: Improve pain at worst to 3/10 to improve overall QOL Outpatient Therapy Plan of Care Treatment Plan May Include Therapeutic Exercise Including Home Yes Exercise Program Manual Therapy Techniques Yes Neuromuscular Re-education Yes Therapeutic Activities to Return to Yes Previous Functional/Work Level ADL/Self Care Education Yes Dry Needling Yes Thermal Modalities Yes Electrical Stimulation Yes Ultrasound/Phonophoresis Yes Iontophoresis Yes Vasopneumatic Compression Pump Yes Massage Yes Eval/Re-Eval Yes Frequency Times per week 2 Duration Number of Weeks 6 Addendums This patient is a candidate for social No or vocational rehab? Patient/Guardian verbally acknowledges Yes understanding of treatment program and consents to further treatment? Patient/Guardian verbally acknowledges Yes understanding of diagnosis, prognosis and goals for treatment? Eval Complexity PT Charges 79869 - Moderate Complexity PHYSICIAN CERTIFICATION: I certify the specified therapy services for Yudy Freedman are required, authorized, and reviewed every 30 days.
== END 2024-02-17 23:59 | disposition home or self-care (01) ==
LOC: PT 10:52
PROVIDERS: Visit Provider Physician Assistant
DX: M75.21 Bicipital tendinitis, right shoulder (principal)
CPT/HCPCS: 97163

== ENCOUNTER 2024-08-31 11:43 | Outpatient (CLI) | payer BC, SELFPAY ==
--- NOTE | 2024-08-31 11:46 | XR_ITS ---
FINAL REPORT CLINICAL HISTORY: right shoulder pain COMPARISON: None FINDINGS: Three views of the right shoulder show no evidence of acute displaced fracture or dislocation of the visualized bony architecture. The joint spaces appear normal. IMPRESSION: Unremarkable exam. Reviewed, Interpreted and Dictated by Unique Hayes MD Transcribed by Veronica Tran Authenticated and [facility]
--- NOTE | 2024-08-31 11:46 | XR_ITS ---
FINAL REPORT CLINICAL HISTORY: neck pain, left 4th and 5th finger numbness COMPARISON: None FINDINGS: Five views of the cervical spine were obtained. There is no fracture present. There is no malalignment. There is moderate degenerative disc disease and spondylosis at C6-7. The remaining disc spaces are well-maintained. Mild bony neural foraminal narrowing is seen at C6-7. IMPRESSION: Moderate degenerative changes at C6-7. Reviewed, Interpreted and Dictated by Unique Hayes MD Transcribed by Veronica Tran Authenticated and . [facility]
== END 2024-08-31 23:59 | disposition home or self-care (01) ==
LOC: RAD 11:44
PROVIDERS: PCP Internal Medicine; Visit Provider Nurse Practitioner Family
DX: M47.812 Spondylosis without myelopathy or radiculopathy, cervical region (principal); G43.009 Migraine without aura, not intractable, without status migrainosus; M25.511 Pain in right shoulder; R20.0 Anesthesia of skin
CPT/HCPCS: 72050; 73030

== ENCOUNTER 2024-10-17 09:04 | Outpatient (CLI) | payer BC, SELFPAY ==
--- NOTE | 2024-10-17 09:00 | CA_ITS ---
FINAL REPORT TECHNIQUE: Mccartney scale, color and spectral doppler images of the bilateral carotid arteries were obtained. CLINICAL HISTORY: DIZZINESS,HTN,EX SMOKER COMPARISON: None FINDINGS: Peak systolic velocity in the right internal carotid artery is 95 cm/sec. The internal carotid to common carotid artery ratio is 1.1. There is no significant carotid artery stenosis and mild plaque formation. The right vertebral artery is normal in direction. Peak systolic velocity in the left internal carotid artery is 114 cm/sec. The internal carotid to common carotid artery ratio is 1.3. There is no significant carotid artery stenosis and mild plaque formation. The left vertebral artery is normal in direction. Note is made of an enlarged and heterogeneous thyroid gland. IMPRESSION: No ultrasound evidence of hemodynamically significant carotid artery stenosis. Normal peak systolic velocities and normal internal to common carotid artery ratios bilaterally. Enlarged and heterogeneous thyroid gland. Consider dedicated thyroid ultrasound for further evaluation. Reviewed, Interpreted and Dictated by Umm Lee MD Transcribed by Cathi De Santiago Authenticated and [facility]
--- OUTSIDE RECORDS SUMMARY | 2024-10-17 09:08 | XMS_ITS | Clinical Summary ---
[facility] Address [address] [place] [address] Care Team Providers Care Entry Specialists Name Role Phone Provider, No Known Primary Care Provider Unavail able Social History Tobacco Use Types Packs/Day Years Used Date Smoking Tobacco: Never Assessed Abuse Screen Answer Date Recorded Unsafe at Home or Work/School Not on file Feels Threatened by Someone? Not on file 12/2022 Does Anyone Keep You from Co ntacting Others or Doint Things Outside the Home? Not on file 12/01/2022 Physical Sign of Abuse Present Not on file 1 Housing Stability Answer Date Recorded Current Living Arrangements Not on file 11/21 Potentially Unsafe Housing Conditions Not on yohan e 12/01/2022 Family and Community Support Answer Bennett e Recorded Help with Day-to-Day Activities Not on file 12/01/2022 Lonely or Isolated Not on file 12/01/2022 Employment Answer Date Recorded Do you want help finding or keeping work or a dawit b? Not on file 12/01/2022 Disabilities Answer Date Recorded Concentrating, Remembering, or Making Decisions Difficulty Not on file 12/01/2022 Doing Errands Independently Difficulty Not on fi le 12/01/2022 Education Answer Date Recorded Help with school or training? Not on file Preferred Language Not on file 12/01/2022 Comments Unknown Sex and Gender Information Value Date Recorded Sex Assigned at Not on file Legal Sex Female 2:32 PM EDT Gender Identity Not on file Sexual Orientation Not on file Plan of Treatment Health Maintenance Due Date Last Done Comments Annual Gynecologic Pelvic and Breast Exam 1965 TDAP/TD VACCINES (1 - Tdap) 1984 MAMMOGRAM 2005 COLOGUARD 2010 COLON CANCER SCREENING 5 YEAR SIGMOIDOSCOPY 2010 COLONOSCOPY 2010 COLORECTAL CANCER SCREENING 2010 CT COLONOGRAPHY 2010 FECAL OCCULT BLOOD TEST 2010 FIT Testing (1 year) 2010 Pneumococcal Vaccine 50+ (1 of 1 - PCV) 05/10/2015 ZOSTER VACCINE (1 of 2) 05/10/2015 ANNUAL PHYSICAL 12/01/2016 HEPATITIS C SCREENING 12/01/2016 COVID-19 Vaccine ( - 2023- season) 2023 INFLUENZA VACCINE 11/21/2024 Care Teams Entry Specialists Relationship Specialty Start Date End Date Provider, No Known [facility] [place] [address] PCP - General 10/29/14
== END 2024-10-17 23:59 | disposition home or self-care (01) ==
LOC: RT 09:04
PROVIDERS: PCP Internal Medicine; Visit Provider Internal Medicine
DX: E04.9 Nontoxic goiter, unspecified (principal); R55 Syncope and collapse; R42 Dizziness and giddiness; I10 Essential (primary) hypertension; Z87.891 Personal history of nicotine dependence
CPT/HCPCS: 93880

== ENCOUNTER 2024-10-26 09:03 | Outpatient (CLI) | payer BC, SELFPAY ==
--- OUTSIDE RECORDS SUMMARY | 2024-10-26 09:08 | XMS_ITS | Clinical Summary ---
[facility] [address] [place] [address] Care Team Providers Care Chronometer Tester Name Role Phone Provider, No Known Primary [...] season) 2023 INFLUENZA VACCINE 11/21/2024 Care Teams Chronometer Tester Relationship Specialty Start Date End Date Provider, No Known [facility] [place] [address] PCP - General 10/29/14
--- NOTE | 2024-10-26 09:30 | US_ITS ---
FINAL REPORT TECHNIQUE: Sonographic images of the thyroid gland were obtained in the longitudinal and transverse planes. CLINICAL HISTORY: Enlarged thyroid noted on carotid ultrasound COMPARISON: None FINDINGS: The right lobe measures 3.1 x 5.5 x 2.1 cm. The right lobe is diffusely heterogeneous. There are several hypoechoic nodules with the largest measuring 7 mm consistent with a TR 4 lesion. The left lobe measures 1.6 x 3.7 x 1.3 cm. Left lobe is diffusely heterogeneous. There is a hypoechoic 8 mm TR 4 nodule. There is also a 6 mm mixed cystic and solid TR 3 nodule. The isthmus measures 9 mm. This is normal. IMPRESSION: Enlarged diffusely heterogeneous thyroid may represent thyroiditis. Bilateral thyroid nodules, all less than 1 cm. Based on size, no current recommendations for follow-up per TI-RADS criteria. Reviewed, Interpreted and Dictated by Umm Lee MD Transcribed by Veronica Tran Authenticated and [facility]
== END 2024-10-26 23:59 | disposition home or self-care (01) ==
LOC: RAD 09:03
PROVIDERS: PCP Internal Medicine; Visit Provider Internal Medicine
DX: E04.2 Nontoxic multinodular goiter (principal)
CPT/HCPCS: 76536

== ENCOUNTER 2024-10-31 09:39 | Outpatient (CLI) | payer BC, SELFPAY ==
[2024-10-31 17:10] LABS: Coronavirus 19, PCR Not Detected (NotDetected); Influenza A, PCR Not Detected (NotDetected); Influenza B, PCR Not Detected (NotDetected)
[2024-10-31 18:46] LABS: Free T4 (Free Thyroxine) 0.54 ng/dl (0.78-2.19)
[2024-10-31 18:57] LABS: Thyroid Stimulating Hormone 15.50 uIU/mL (0.465-4.68)
--- OUTSIDE RECORDS SUMMARY | 2024-11-02 09:43 | XMS_ITS | Clinical Summary ---
[facility] [address] [place] [address] Care Team Providers Care Ski Guide Name Role Phone Provider, No Known Primary [...] C SCREENING 12/01/2016 COVID-19 Vaccine ( - season) 2024 INFLUENZA VACCINE 11/21/2024 Care Teams Ski Guide Relationship Specialty Start Date End Date Provider, No Known [facility] [address] PCP - General 10/29/14
== END 2024-10-31 23:59 ==
LOC: LAB.DROPOF 11-02 09:40
PROVIDERS: PCP Internal Medicine; Visit Provider Internal Medicine
DX: E04.9 Nontoxic goiter, unspecified (principal); B34.9 Viral infection, unspecified; Z20.822 Contact with and (suspected) exposure to COVID-19; Z20.828 Contact with and (suspected) exposure to other viral communicable diseases
CPT/HCPCS: 84439; 84443; 87631

== ENCOUNTER 2024-11-19 15:32 | Outpatient (CLI) | payer BC, SELFPAY ==
--- NOTE | 2024-11-19 15:30 | CT_ITS ---
PROCEDURE INFORMATION: Exam: CT Head With Contrast Exam date and time: 11/19/2024 4:25 PM Age: 59 years old Clinical indication: Pain; Headache; Additional info: New right sided headaches TECHNIQUE: Imaging protocol: Computed tomography of the head with intravenous contrast. Radiation optimization: All CT scans at this facility use at least one of these dose optimization techniques: automated exposure control; mA and/or kV adjustment per patient size (includes targeted exams where dose is matched to clinical indication); or iterative reconstruction. Contrast material: ISOVUE; Contrast volume: 100 ml; Contrast route: IV; COMPARISON: MR CERVICAL SPINE WO CON 02/06/2020 8:18 AM FINDINGS: Brain: No acute infarct. No acute hemorrhage. Unremarkable white matter for age. No midline shift. No suspicious enhancing intracranial mass seen. Cerebral ventricles: No significant ventriculomegaly. Pituitary gland and sella: The sella is partially empty Bones/joints: No acute osseous abnormality. Paranasal sinuses: Visualized paranasal sinuses are clear. Mastoid air cells: Mastoid air cells are well-aerated. Orbits: Visualized portions of the orbits are unremarkable. Soft tissues: Soft tissues are unremarkable as visualized. Other findings: There appears to be an aneurysm at the level of the anterior communicating artery measuring 3 mm on series 3, image 91. IMPRESSION: 1. No acute intracranial abnormality. 2. There appears to be an aneurysm at the level of the anterior communicating artery measuring 3 mm on series 3, image 91. Recommend a dedicated CTA of the head for follow up.
--- OUTSIDE RECORDS SUMMARY | 2024-11-19 15:35 | XMS_ITS | Clinical Summary ---
[facility] Address [address] [place] [address] Care Team Providers Care International Relations Professor Name Role Phone Provider, No Known Primary [...] ANNUAL PHYSICAL 12/01/2016 HEPATITIS C SCREENING 12/01/2016 INFLUENZA VACCINE 09/21/2024 Care Teams International Relations Professor Relationship Specialty Start Date End Date Provider, No Known [facility] [place] [address] PCP - General 10/29/14
[2024-11-19 16:14] LABS: Blood Urea Nitrogen 21 mg/dl (7-17); Creatinine,Serum 1.00 mg/dl (0.52-1.04); Estimated Glomerular Filt Rate 57 ml/min (>60); GFR (African American) 69 ML/MIN (>60)
[2024-11-19] MEDS: SODIUM CHLORIDE 0.9% 10ML SYR (RAD ONLY) 10 ML IV (16:36)
[2024-11-19] MEDS: IOPAMIDOL-300 (61%) 100ML VIAL 100 ML IV (16:38)
[2024-11-19 17:20] LABS: Hematocrit 37.8 % (37.0-47.0); Hemoglobin 12.5 g/dL (12.2-16.2); Immature Granulocytes % 0.1 %; Mean Corpuscular HGB Conc 33.1 g/dL (31.8-35.4); Mean Corpuscular Hemoglobin 30.9 pg (27.0-31.2); Mean Corpuscular Volume 93.3 fl (81-99); Nucleated Red Blood Cells % 0 %; Platelet Count 239 K/mm3 (142-424); Red Blood Count 4.05 M/mm3 (4.20-5.40); Red Cell Distribution Width-SD 42.2 fL; White Blood Count 7.4 K/mm3 (4.8-10.8)
[2024-11-19 18:00] LABS: Anion Gap 14.5 mEq/L (5-15); Blood Urea Nitrogen 23 mg/dl (7-17); Calcium 8.9 mg/dl (8.4-10.2); Carbon Dioxide 26 mmol/L (22.0-30.0); Chloride 101 mmol/L (98-107); Creatinine,Serum 1.00 mg/dl (0.52-1.04); Estimated Glomerular Filt Rate 57 ml/min (>60); GFR (African American) 69 ML/MIN (>60); Glucose 85 mg/dl (74-100); Potassium 3.5 mmoL/L (3.5-5.1); Sodium 138 mmol/L (136-145)
== END 2024-11-19 23:59 | disposition home or self-care (01) ==
LOC: RAD 15:32
PROVIDERS: PCP Internal Medicine; Visit Provider Internal Medicine
DX: I67.1 Cerebral aneurysm, nonruptured (principal); I10 Essential (primary) hypertension; S09.90XA Unspecified injury of head, initial encounter
CPT/HCPCS: 36415; 70460; 80048; 82565; 84520; 85025; 85651; Q9967

== ENCOUNTER 2024-11-21 09:07 | Outpatient (CLI) | payer BC, SELFPAY ==
--- NOTE | 2024-11-21 09:15 | CT_ITS ---
FINAL REPORT TECHNIQUE: thin section axial CT with and without IV contrast supplemented with multiplanar 3-D reconstruction of the head. This study was performed with techniques to keep radiation doses as low as reasonably achievable, (ALARA)individualized dose reduction techniques using automated exposure control or adjustment of mA and/or kV according to the patient's size were employed. CLINICAL HISTORY: Right sided headaches, possible aneurysm FINDINGS: The intracranial vasculature is well-opacified. There appears to be a 3 mm rounded vascular structure extending from the inferior margin of the right A1 segment well-seen on image 49 of series 601 and image 31 of series 4. This appears to represent a small aneurysm. The middle cerebral arteries are widely patent. The basilar artery is patent. There is normal intracranial branching pattern. 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 Reviewed, Interpreted and Dictated by Mauro Perry MD Transcribed by Yulia Casey Authenticated and [facility]
--- OUTSIDE RECORDS SUMMARY | 2024-11-21 09:22 | XMS_ITS | Clinical Summary ---
[facility] Address [address] [place] [address] Care Team Providers Care Research Nurse Practitioner Name Role Phone Provider, No Known Primary [...] SCREENING 12/01/2016 INFLUENZA VACCINE 09/21/2024 Care Teams Research Nurse Practitioner Relationship Specialty Start Date End Date Provider, No Known [facility] [place] [address] [place] [address] PCP - General 10/29/14
[2024-11-21] MEDS: IOPAMIDOL-370 (76%);100ML BOTTLE 80 ML IV (10:16)
[2024-11-21] MEDS: SODIUM CHLORIDE 0.9% 10ML SYR (RAD ONLY) 10 ML IV (10:16)
[2024-11-21] MEDS: 0.9 % SODIUM CHLORIDE 50 ML VIAL IV (10:16)
== END 2024-11-21 23:59 | disposition home or self-care (01) ==
LOC: RAD 09:08
PROVIDERS: PCP Internal Medicine; Visit Provider Internal Medicine
DX: I67.1 Cerebral aneurysm, nonruptured (principal); R93.0 Abnormal findings on diagnostic imaging of skull and head, not elsewhere classified
CPT/HCPCS: 70496; Q9967

== ENCOUNTER 2025-02-01 08:59 | Outpatient (CLI) | payer BC, SELFPAY | END 2025-02-01 23:59 | disposition home or self-care (01) | LOC: LAB.DROPOF 02-04 09:00 | PROVIDERS: PCP Internal Medicine; Visit Provider Family Medicine | DX: R80.9 Proteinuria, unspecified (principal) | CPT/HCPCS: 82043; 82570 ==

== ENCOUNTER 2025-02-04 09:46 | Outpatient (CLI) | payer BC, SELFPAY ==
--- NOTE | 2025-02-04 09:45 | MR_ITS ---
FINAL REPORT TECHNIQUE: Multiplanar and multisequence imaging of the cervical spine was obtained. CLINICAL HISTORY: upper extremity weakness COMPARISON: None FINDINGS: Alignment is normal in the sagittal plane. Vertebral body height is preserved. Signal intensity within the substance of the spinal cord is normal. No acute bone marrow edema. No acute paraspinal abnormality. C2/3: No focal disc herniation, central canal stenosis, or neural foraminal narrowing. C3/4: No focal disc herniation, central canal stenosis, or neural foraminal narrowing. C4/5: No focal disc herniation, central canal stenosis, or neural foraminal narrowing. C5/6: No focal disc herniation, central canal stenosis, or neural foraminal narrowing. C6/7: An annular bulge is present with degenerative endplate changes and facet osteoarthropathy. There is mild bilateral neural foraminal narrowing without evidence of central canal stenosis. C7/T1: An annular bulge is present with degenerative endplate changes and facet osteoarthropathy. No focal disc herniation, central canal stenosis, or neural foraminal narrowing. IMPRESSION: Mild degenerative change at the C6-7 and C7-T1 levels, without significant central canal stenosis. Reviewed, Interpreted and Dictated by Umm Lee MD Transcribed by Cathi De Santiago Authenticated and [facility]
== END 2025-02-04 23:59 | disposition home or self-care (01) ==
LOC: RAD 09:47
PROVIDERS: PCP Internal Medicine; Visit Provider Specialist
DX: M47.812 Spondylosis without myelopathy or radiculopathy, cervical region (principal); M47.813 Spondylosis without myelopathy or radiculopathy, cervicothoracic region; G44.049 Chronic paroxysmal hemicrania, not intractable; I67.1 Cerebral aneurysm, nonruptured; R53.1 Weakness; R20.2 Paresthesia of skin
CPT/HCPCS: 72141